=== PATIENT | male | born 1965 | race Hispanic/Latino ===

== ENCOUNTER 2017-04-16 11:31 | Emergency (ER) | payer OTHER ==
[2017-04-16 11:38] VITALS: RESP 20; O2SAT 98; BMI 32.8
--- NOTE | 2017-04-16 13:34 | ED PDOC ---
Lower Extremity Pain/Injury Time Seen by Provider: 04/16/17 12:11 Chief Complaint (Nursing): Lower Extremity Problem/Injury Chief Complaint (Provider): Lower extremity problem History Per: Patient History/Exam Limitations: no limitations Onset/Duration Of Symptoms: Days (x3) Current Symptoms Are (Timing): Still Present Additional Complaint(s): Shane Dailey is a 51 year old male, with a past medical history of asthma, hypertension, and chronic leg swelling, who presents to the emergency department complaining of worsening bilateral leg swelling onset 2 days ago. Patient states he has had chronic leg swelling for years but recently it has worsen. 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 Patient denies any chest pain, fever, chills, cough or shortness of breath No further medical complaints. PMD: Guillaume Reeves - Risk Factors DVT Risk Factors: Pos: History Of DVT Past Medical History Reviewed: Historical Data, Nursing Documentation, Vital Signs Vital Signs: Last Vital Signs Temp 97.7 F 04/16/17 11:37 Pulse 65 04/16/17 11:37 Resp 20 04/16/17 11:37 BP 126/86 04/16/17 11:37 Pulse Ox 98 04/16/17 11:37 - Medical History PMH: Asthma, Deep Vein Thrombosis Denies: HIV - Family History Family History: States: Unknown Family Hx - Social History Current smoker - smoking cessation education provided: Yes (Heavy smoker >10 cigarettes daily) Alcohol: None Drugs: Cocaine (for 30+ years), Opiates (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) - Home Medications Home Medications: Ambulatory Orders Medication Instructions Recorded Clindamycin [Cleocin] 600 mg PO Q8 #30 cap 01/18/16 Lactobacillus Acidophilus [Bacid 1 cap PO BID #0 cap 01/18/16 Acidophilus] Oxycodone HCl/Acetaminophen 1 tab PO Q12 PRN #15 tab 01/18/16 [Percocet 325 mg-5 mg] Sertraline [Zoloft] 100 mg PO DAILY #0 tab 01/18/16 cloNIDine [clonidine HCl] 0.1 mg PO BID #0 tab 01/18/16 traZODone [Desyrel] 100 mg PO HS #0 tab 01/18/16 Cephalexin [Keflex] 500 mg PO BID #14 capsule 04/16/17 - Allergies Allergies/Adverse Reactions: Allergies Allergy/AdvReac Type Severity Reaction Status Date / Time No Known Allergies Allergy Verified 04/16/17 11:55 Review of Systems ROS Statement: Except As Marked, All Systems Reviewed And Found Negative Constitutional: Negative for: Fever, Chills Cardiovascular: Negative for: Chest Pain Respiratory: Negative for: Cough, Shortness of Breath Musculoskeletal: Positive for: Leg Pain (bilateral leg swelling ) Physical Exam - Reviewed Nursing Documentation Reviewed: Yes Vital Signs Reviewed: Yes - Physical Exam Appears: Positive for: Well (comfortable), Non-toxic, No Acute Distress Head Exam: Positive for: ATRAUMATIC, NORMAL INSPECTION, NORMOCEPHALIC Skin: Positive for: Normal Color, Warm, Dry Eye Exam: Positive for: EOMI, Normal appearance, PERRL Neck: Positive for: Normal, Painless ROM, Supple Cardiovascular/Chest: Positive for: Regular Rate, Rhythm. Negative for: Murmur Respiratory: Positive for: Normal Breath Sounds. Negative for: Respiratory Distress Gastrointestinal/Abdominal: Positive for: Normal Exam, Bowel Sounds, Soft. Negative for: Tenderness, Guarding, Rebound Back: Positive for: Normal Inspection (No midline tenderness). Negative for: L CVA Tenderness, R CVA Tenderness Extremity: Positive for: Normal ROM (bilateral legs), Tenderness (bilateral diffused but no redness no wounds.), Swelling (bilateral equal swelling below the knee.) Neurologic/Psych: Positive for: Alert, Oriented. Negative for: Motor/Sensory Deficits - Laboratory Results Result Diagrams: 04/16/17 13:00 04/16/17 13:00 - ECG O2 Sat by Pulse Oximetry: 98 (RA) Pulse Ox Interpretation: Normal Medical Decision Making Medical Decision Making: Initial Impression: leg swelling. Differential includes: lymphedema, dependent edema of the legs. Rule out DVT, CHF Initial Plan: --B-type Natriuretic Peptide --Basic Metabolic Panel --CBC w/ differential --Chest portable [RAD] --Duplex Lower Extrm Vein Bilat [US] --reevaluation 1335 Chest x-ray FINDINGS: LUNGS: No active pulmonary disease. PLEURA: No significant pleural effusion identified, no pneumothorax apparent. CARDIOVASCULAR: No radiographic findings to suggest acute or significant cardiovascular disease. OSSEOUS STRUCTURES: No significant abnormalities. VISUALIZED UPPER ABDOMEN: Normal. OTHER FINDINGS: None. IMPRESSION: No active disease. No significant interval change compared to the prior examination(s). Scribe Attestation: Documented by Jorge Cramer, acting as a scribe for Chuy Hernandez MD Provider Scribe Attestation: All medical record entries made by the Scribe were at my direction and personally dictated by me. I have reviewed the chart and agree that the record accurately reflects my personal performance of the history, physical exam, medical decision making, and the department course for this patient. I have also personally directed, reviewed, and agree with the discharge instructions and disposition. Disposition - Clinical Impression Clinical Impression: Leg swelling - Patient ED Disposition Is Patient to be Admitted: No Doctor Will See Patient In The: Office Counseled Patient/Family Regarding: Studies Performed, Diagnosis, Need For Followup - Disposition Referrals: Guillaume Reeves MD [Family Provider] - Disposition: Routine/Home Disposition Time: 17:33 Condition: GOOD Additional Instructions: Take your medications as instructed. Apply compression stockings. Follow up with your PCP in 3 days. Prescriptions: Cephalexin [Keflex] 500 mg PO BID #14 capsule Instructions: Leg Edema (ED)
[2017-04-16 13:36] LABS: BASO % 0.9 % (0.0-2.0); EOS # 0.1 K/uL (0.0-0.7); EOS % 2.6 % (0.0-4.0); HEMATOCRIT 34.1 % (35.0-51.0); LYMPH # 0.9 K/uL (1.0-4.3); LYMPH % 30.9 % (20.0-40.0); MEAN CELL VOLUME 90.1 fl (80.0-94.0); MEAN CORPUSCULAR HEMOGLOBIN 30.7 pg (27.0-31.0); MEAN CORPUSCULAR HGB CONC 34.1 g/dL (33.0-37.0); MEAN PLATELET VOLUME 9.8 fl (7.2-11.7); MONO # 0.4 K/uL (0.0-0.8); MONO % 12.8 % (0.0-10.0); NEUT # 1.6 K/uL (1.8-7.0); NEUT % 52.8 % (50.0-75.0); NRBC % 0.1 % (0.0-0.0); RED CELL DISTRIBUTION WIDTH 14.9 % (11.5-14.5); WHITE BLOOD COUNT 3.1 K/uL (4.8-10.8)
--- NOTE | 2017-04-16 13:37 | RAD ---
HISTORY: Shortness of breath. Technique: Single view portable erect @ 13:02. COMPARISON: 01/11/2016 FINDINGS: LUNGS: No active pulmonary disease. PLEURA: No significant pleural effusion identified, no pneumothorax apparent. CARDIOVASCULAR: No radiographic findings to suggest acute or significant cardiovascular disease. OSSEOUS STRUCTURES: No significant abnormalities. VISUALIZED UPPER ABDOMEN: Normal. OTHER FINDINGS: None. IMPRESSION: No active disease. No significant interval change compared to the prior examination(s). Please note: No preliminary report/ innterpretation of this examination provided by emergency department personnel.
[2017-04-16 13:59] LABS: BLOOD UREA NITROGEN 14 mg/dl (9-20); CALCIUM 9.4 mg/dL (8.4-10.2); CARBON DIOXIDE 22 mmol/L (22-30); CHLORIDE 104 mmol/L (98-107); GFR AFRICAN-AMERICAN > 60; GLUCOSE,RANDOM 73 mg/dL (75-110); POTASSIUM 4.6 MMOL/L (3.6-5.0); SODIUM 139 mmol/l (132-148)
--- NOTE | 2017-04-16 15:55 | US ---
PROCEDURE: Bilateral lower extremity venous duplex Doppler. HISTORY: joey leg swelling pain COMPARISON: None available. TECHNIQUE: Bilateral common femoral, superficial femoral, popliteal and posterior tibial veins were evaluated. Flow was assessed with color Doppler, compressibility, assessment of phasic flow and augmentation response. FINDINGS: COMMON FEMORAL VEIN: Right CFV: Unremarkable. Left CFV: Unremarkable. SUPERFICIAL FEMORAL VEIN: Right SFV: Unremarkable. Left SFV: Unremarkable. POPLITEAL VEIN: Right Popliteal: Unremarkable. Left Popliteal: Unremarkable. POSTERIOR TIBIAL VEIN: Right PTV: Unremarkable. Left PTV: Unremarkable. OTHER FINDINGS: Right inguinal lymph node 2.9 cm greatest dimension. Left inguinal lymph nodes, 3.5 cm and 3.2 cm in respective greatest dimensions. Extensive bilateral subcutaneous edema. IMPRESSION: No evidence of deep venous thrombosis. Bilateral enlarged inguinal lymph nodes.
[2017-04-16 17:36] VITALS: BP 125/90; PULSE 79; TEMP 98
== END 2017-04-16 17:39 | disposition home or self-care (01) ==
LOC: H.ER 11:31
DX: R60.0 Localized edema (principal)

== ENCOUNTER 2018-09-02 03:18 | Inpatient (IN) | payer OTHER ==
[2018-09-02 03:26] VITALS: BMI 40.7
[2018-09-02] MEDS ORDERED: Sodium Chloride 0.9% 1,000 ML IV STA (04:03)
--- NOTE | 2018-09-02 04:06 | ED PDOC ---
HPI: Abdomen Chief Complaint (Provider): abdominal pain History Per: Patient History/Exam Limitations: no limitations Onset/Duration Of Symptoms: Days (3), Waxing/Waning Current Symptoms Are (Timing): Still Present Location Of Pain/Discomfort: Epigastric Associated Symptoms: Nausea, Vomiting Additional Complaint(s): 53 y/o male brought in by EMS for evaluation of intermittent epigastric abdominal pain x 3 days. Associated vomiting since last night. Denies fever, chest pain, shortness of breath, palpitations, changes in bowel movements, urinary symptoms, recent travel, sick contacts. PMD: Dr. Emerson Robbins <Candace Queen - Last Filed: 09/02/18 06:06> <Bismark Osuna - Last Filed: 09/02/18 06:37> Time Seen by Provider: 09/02/18 03:54 Chief Complaint (Nursing): Abdominal Pain Past Medical History Reviewed: Historical Data, Nursing Documentation, Vital Signs Vital Signs: Last Vital Signs Temp 98.6 F 09/02/18 03:26 Pulse 68 09/02/18 03:26 Resp 18 09/02/18 03:26 BP 136/97 H 09/02/18 03:26 Pulse Ox 99 09/02/18 03:26 - Medical History PMH: Asthma, Deep Vein Thrombosis Denies: HIV - Family History Family History: States: Unknown Family Hx <Candace Queen - Last Filed: 09/02/18 06:06> Vital Signs: Last Vital Signs Temp 98.6 F 09/02/18 03:26 Pulse 68 09/02/18 03:26 Resp 18 09/02/18 03:26 BP 136/97 H 09/02/18 03:26 Pulse Ox 99 09/02/18 06:06 <Bismark Osuna - Last Filed: 09/02/18 06:37> - Home Medications Home Medications: Ambulatory Orders Medication Instructions Recorded Clindamycin [Cleocin] 600 mg PO Q8 #30 cap 01/18/16 Lactobacillus Acidophilus [Bacid 1 cap PO BID #0 cap 01/18/16 Acidophilus] Oxycodone HCl/Acetaminophen 1 tab PO Q12 PRN #15 tab 01/18/16 [Percocet 325 mg-5 mg] Sertraline [Zoloft] 100 mg PO DAILY #0 tab 01/18/16 cloNIDine [clonidine HCl] 0.1 mg PO BID #0 tab 01/18/16 traZODone [Desyrel] 100 mg PO HS #0 tab 01/18/16 Cephalexin [Keflex] 500 mg PO BID #14 capsule 04/16/17 - Allergies Allergies/Adverse Reactions: Allergies Allergy/AdvReac Type Severity Reaction Status Date / Time No Known Allergies Allergy Verified 09/02/18 03:44 Review of Systems ROS Statement: Except As Marked, All Systems Reviewed And Found Negative Gastrointestinal: Positive for: Nausea, Vomiting, Abdominal Pain <Candace Queen C - Last Filed: 09/02/18 06:06> Physical Exam - Reviewed Nursing Documentation Reviewed: Yes Vital Signs Reviewed: Yes - Physical Exam Appears: Positive for: Well, Non-toxic, Uncomfortable Head Exam: Positive for: ATRAUMATIC, NORMAL INSPECTION, NORMOCEPHALIC Skin: Positive for: Normal Color Eye Exam: Positive for: Normal appearance ENT: Positive for: Normal ENT Inspection Cardiovascular/Chest: Positive for: Regular Rate, Rhythm Respiratory: Positive for: Normal Breath Sounds Gastrointestinal/Abdominal: Positive for: Bowel Sounds, Soft, Tenderness (epigastric) Back: Positive for: Normal Inspection Extremity: Positive for: Normal ROM Neurologic/Psych: Positive for: Alert, Oriented (x3) <Candace Queen C - Last Filed: 09/02/18 06:06> - ECG ECG: Positive for: Viewed By Me (reviewed by ED attending) ECG Rhythm: Positive for: Sinus Rhythm O2 Sat by Pulse Oximetry: 99 - Progress ED Course And Treament: -cbc -cmp -lipase -urinalysis -IV NS bolus -IV zofran -IV pepcid -IV toradol <Candace Queen C - Last Filed: 09/02/18 06:06> Medical Decision Making Medical Decision Makin Patient presenting with epigastric pain, vomiting --DDx: biliary disease, gastritis, pancreatitis --IV established, labs drawn --Will get U/S, possibly CT if necessary --Will endorse case to Dr. James at 700 <Bismark Osuna - Last Filed: 09/02/18 06:37> Disposition - Patient ED Disposition Is Patient to be Admitted: No - Disposition Disposition Time: 06:00 Patient Signed Over To: Bismark Osuna Handoff Comments: pending labs, imaging, re-eval <Candace Queen - Last Filed: 09/02/18 06:06> - Patient ED Disposition Is Patient to be Admitted: Transfer of Care - Disposition Disposition: Transfer of Care Disposition Time: 07:00 Patient Signed Over To: Chuy Dixon <Bismark Osuna - Last Filed: 09/02/18 06:37> - Clinical Impression Clinical Impression: Abdominal pain - Disposition Condition: STABLE Forms: [employer] (Thai)
[2018-09-02 06:38] LABS: BASO % 0.1 % (0.0-2.0); EOS % 0.1 % (0.0-4.0); HEMOGLOBIN 15.2 g/dL (12.0-18.0); LYMPH # 0.3 K/uL (1.0-4.3); LYMPH % 3.7 % (20.0-40.0); MEAN CELL VOLUME 90.4 fl (80.0-94.0); MEAN CORPUSCULAR HEMOGLOBIN 30.2 pg (27.0-31.0); MEAN CORPUSCULAR HGB CONC 33.4 g/dL (33.0-37.0); MEAN PLATELET VOLUME 7.9 fl (7.2-11.7); MONO # 0.3 K/uL (0.0-0.8); NEUT # 6.2 K/uL (1.8-7.0); NEUT % 91.1 % (50.0-75.0); PLATELET COUNT 119 K/uL (130-400); RBC 5.04 Mil/uL (4.40-5.90); RED CELL DISTRIBUTION WIDTH 13.3 % (11.5-14.5); WHITE BLOOD COUNT 6.8 K/uL (4.8-10.8)
[2018-09-02 06:43] LABS: INR 1.1; PROTHROMBIN TIME 12.1 Seconds (9.8-13.1)
[2018-09-02 06:57] LABS: ALB/GLOB RATIO 0.8 (1.0-2.1); ALBUMIN 4.2 g/dL (3.5-5.0); BLOOD UREA NITROGEN 17 mg/dl (9-20); CALCIUM 9.3 mg/dL (8.4-10.2); GFR NON-AFRICAN AMERICAN > 60; LIPASE 76 U/L (23-300)
[2018-09-02 07:03] LABS: ALT/SGPT 188 U/L (21-72); AST/SGOT 280 U/L (17-59)
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
[2018-09-02 07:53] LABS: SQUAMOUS EPITHIAL < 1 /hpf (0-5); URINE BACTERIA RARE (<OCC); URINE BILIRUBIN NEGATIVE (NEGATIVE); URINE BLOOD NEGATIVE (NEGATIVE); URINE CLARITY SLIGHTY-CLOUDY (Clear); URINE COLOR AMBER (YELLOW); URINE GLUCOSE (UA) NEG (NEGATIVE); URINE LEUKOCYTE ESTERASE NEG Leu/uL (Negative); URINE PROTEIN NEGATIVE (NEGATIVE)
[2018-09-02 08:57] LABS: BANDS 7 % (0-2); LYMPHOCYTE 4 % (20-50); MONOCYTE 6 % (0-10); NEUTROPHIL 83 % (42-75); PLATELET ESTIMATE DECREASED (NORMAL); TOTAL CELLS COUNTED 100
[2018-09-02 08:58] LABS: PLATELET CLUMPS PRESENT
[2018-09-02 09:49] LABS: BARBITURATES, UR NEGATIVE (NEGATIVE); BENZODIAZEPINES, UR NEGATIVE (NEGATIVE); OPIATES, UR POSITIVE (NEGATIVE); PHENCYCLIDINE, UR NEGATIVE (NEGATIVE)
--- NOTE | 2018-09-02 09:54 | US ---
Date of service: 09/02/2018 HISTORY: abd pain, vomiting COMPARISON: None. TECHNIQUE: Sonographic evaluation of the right upper quadrant of the abdomen. FINDINGS: This examination is markedly limited due to body habitus related imaging constraints. LIVER: Measures 18.9 cm in length. Normal echogenicity of the liver parenchyma. No mass. No intrahepatic bile duct dilatation. GALLBLADDER: Gallbladder is partially collapsed and ectatic at the gallbladder fossa with potential marked mural thickening and pericholecystic fluid. No definitive cholelithiasis is identified. COMMON BILE DUCT: Measures 17.8 mm. No definitive choledocholithiasis is seen in the proximal visualized CBD with mid and distal segment obscured by overlying bowel gas. The common hepatic duct is dilated to 15 mm at least. PANCREAS: Pancreas is poorly evaluated due to overlying bowel gas and body habitus related image degradation. RIGHT KIDNEY: Measures 9.9 cm in length. Normal echogenicity. No calculus, mass, or hydronephrosis. AORTA: No aneurysmal dilatation. IVC: Unremarkable. OTHER FINDINGS: None . IMPRESSION: Marked interval dilatation of the common bile duct and common hepatic duct up to 15-17.8 mm as discussed above without definitive choledocholithiasis. Pancreas poorly evaluated and therefore the pancreatic duct is not identified. The gallbladder is contracted but possibly inflammatory given mural thickening and pericholecystic fluid question above. Follow-up MRCP exam is advised and also consider CT of the abdomen pelvis with oral and intravenous contrast for better definition of the pancreas and remaining biliary tree.
[2018-09-02] MEDS ORDERED: Iohexol 240 (50 ml) PO ONE (10:07)
[2018-09-02] MEDS ORDERED: Iohexol 240 (50 ml) ONE ×2 (10:32→10:34)
[2018-09-02] MEDS ORDERED: Piperacillin/Tazobact 3.375 GM in Sodium Chloride 0.9% 100 ML IVPB STA (10:42)
[2018-09-02 11:24] LABS: VENOUS BLOOD GAS BASE EXCESS 0.3 mmol/L (0.0-2.0); VENOUS BLOOD GAS PCO2 38 mmHg (40-60); VENOUS BLOOD GAS PO2 81 mm/Hg (30-55); VENOUS BLOOD PH 7.42 (7.32-7.43)
[2018-09-02] MEDS ORDERED: Piperacillin/Tazobact 3.375 gm Inj IVPB ONE (11:58)
--- NOTE | 2018-09-02 12:43 | CARD ---
APPROVED REPORT Date of service: 09/02/2018 EKG Measurement Heart [id number] <Conclusion> Normal sinus rhythm Normal ECG
[2018-09-02] MEDS: Lactated Ringer's 1,000 ML IV SCH ×3 (12:51→21:36)
[2018-09-02] MEDS ORDERED: Iohexol 300 50 ML ONE (12:54)
[2018-09-02] MEDS ORDERED: Iohexol 300 100 ML IJ ONE (12:54)
[2018-09-02] MEDS ORDERED: Sodium Chloride 0.9% 50 ML IV ONE (12:55)
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
--- NOTE | 2018-09-02 14:51 | CT ---
Date of service: 09/02/2018 PROCEDURE: CT Abdomen and Pelvis with contrast HISTORY: abdominal pain COMPARISON: Limited abdomen ultrasound 09/02/2018 and 01/15/2016. TECHNIQUE: Following oral and intravenous contrast administration, a CT examination of the abdomen and pelvis was performed from the domes of the diaphragms to the symphysis pubis with reformatted datasets provided not only axial but also sagittal and coronal series. Contrast dose: Omnipaque 300, 95 cc Radiation dose: Total exam DLP = 886.97 mGy-cm. This CT exam was performed using one or more of the following dose reduction techniques: Automated exposure control, adjustment of the mA and/or kV according to patient size, and/or use of iterative reconstruction technique. FINDINGS: LOWER THORAX: Unremarkable. LIVER: Hepatic steatosis appreciate without focal mass identified. Intrahepatic biliary dilatation appears mild to moderate severity. GALLBLADDER AND BILE DUCTS: The gallbladder appears irregular and is partially collapsed. Mural thickening and pericholecystic reaction is present with trace fluid associated and prominent dilatation of the common hepatic duct is identified up to 14 mm with the proximal common bile duct measuring 20.5 mm. The mid common bile duct measures 12 mm with the distal common bile duct measuring 11.8 mm. No radiodense choledocholithiasis is appreciated. Consider possible radiolucent choledocholithiasis, distal most CBD stricture or potential ampullary mass. A large ampullary lesion is not identified nor is a prominent pancreas mass evident. Instead, the pancreas appears rather atrophic diffusely. Pancreatic duct is not identified adequately. PANCREAS: See gallbladder section above. SPLEEN: Splenomegaly, nonfocal, to 14.1 cm. ADRENALS: Unremarkable. No mass. KIDNEYS AND URETERS: Unremarkable. No hydronephrosis. No solid mass. VASCULATURE: Unremarkable. No aortic aneurysm. No aortic atherosclerotic calcification or mural plaque present. BOWEL: Unremarkable. No obstruction. No gross mural thickening. APPENDIX: Normal appendix. PERITONEUM: Tiny umbilical hernia identified containing only mesenteric fat and no bowel. LYMPH NODES: Unremarkable. No enlarged lymph nodes. BLADDER: Unremarkable. REPRODUCTIVE: Unremarkable. BONES: No acute fracture. OTHER FINDINGS: None. IMPRESSION: 1. Abnormal hepatic biliary findings are identified including hepatic steatosis and diffuse biliary tree dilatation predominantly extrahepatic but with [id number] intrahepatic biliary dilatation. No radiodense choledocholithiasis identified or obvious pancreas mass or gross ampullary mass. Nevertheless, consider possible lucent choledocholithiasis or ampullary mass. Pancreatic mass not completely excluded near the head. Follow-up MRCP is advised with abdomen MRI with without contrast. Endoscopic ultrasonography of the pancreas head and CBD may be helpful as well. 2. A tiny umbilical hernia is identified containing only mesenteric fat and no bowel.
[2018-09-02] MEDS: Morphine 5 MG/ML SYRINGE IVP PRN ×2 (16:23→20:13)
[2018-09-02] MEDS ORDERED: Pneumococcal 23-Valent Vaccine IM ONE (19:37)
[2018-09-02] MEDS ORDERED: Influenza Vaccine 60 mcg/0.5 mL SYR (4YR UP) IM ONE (20:00)
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
[2018-09-02] MEDS: Piperacillin/Tazobact 3.375 GM in Sodium Chloride 0.9% 100 ML IVPB SCH (21:57)
[2018-09-03] MEDS: Gentamicin 80mg/50ml NS 80 MG/50 ML BAG IVPB SCH ×3 (00:52→17:53)
[2018-09-03] MEDS: Piperacillin/Tazobact 3.375 GM in Sodium Chloride 0.9% 100 ML IVPB SCH ×4 (03:58→21:54)
[2018-09-03] MEDS: Lactated Ringer's 1,000 ML IV SCH ×3 (03:59→21:52)
[2018-09-03 07:25] LABS: ALB/GLOB RATIO 0.8 (1.0-2.1); ALBUMIN 3.7 g/dL (3.5-5.0); ALT/SGPT 124 U/L (21-72); AST/SGOT 104 U/L (17-59); BLOOD UREA NITROGEN 16 mg/dl (9-20); CALCIUM 9.2 mg/dL (8.4-10.2); GFR NON-AFRICAN AMERICAN > 60
[2018-09-03 07:55] LABS: HEMOGLOBIN 13.2 g/dL (12.0-18.0); MEAN CELL VOLUME 88.7 fl (80.0-94.0); MEAN CORPUSCULAR HEMOGLOBIN 30.5 pg (27.0-31.0); MEAN CORPUSCULAR HGB CONC 34.5 g/dL (33.0-37.0); RBC 4.34 Mil/uL (4.40-5.90); RED CELL DISTRIBUTION WIDTH 13.6 % (11.5-14.5); WHITE BLOOD COUNT 8.3 K/uL (4.8-10.8)
[2018-09-03] MEDS: Morphine 5 MG/ML SYRINGE IVP PRN ×3 (09:09→18:10)
--- NOTE | 2018-09-03 09:23 | CP.PCM.PN ---
Subjective - Date & Time of Evaluation Date of Evaluation: 09/03/18 Time of Evaluation: 09:20 - Subjective Subjective: seen at bedside, no overnight events. Pt continues to report epigastric pain similar to admission, intermittent in nature. Pt npo, reports no nausea or vomiting. Pt reports urine dark yellow. Objective - Vital Signs/Intake and Output Vital Signs (last 24 hours): Temp Pulse Resp BP Pulse Ox 98.3 F 60 20 123/77 97 09/03/18 08:04 09/03/18 08:04 09/03/18 08:04 09/03/18 08:04 09/03/18 08:04 - Medications Medications: Current Medications Lactated Ringer's (Lactated Ringer's) 1,000 mls @ 125 mls/hr IV .Q8H NANCY Last Admin: 09/03/18 03:59 Dose: 125 mls/hr Gentamicin Sulfate/Sodium Chloride (Gentamicin 80mg/50ml Ns) 80 mg in 50 mls @ 50 mls/hr IVPB Q8 NANCY; Protocol Last Admin: 09/03/18 00:52 Dose: 50 mls/hr Piperacillin Sod/Tazobactam (Sod 3.375 gm/ Sodium Chloride) 100 mls @ 100 mls/hr IVPB Q6 NANCY; Protocol Last Admin: 09/03/18 03:58 Dose: 100 mls/hr Methadone HCl (Methadone) 80 mg PO DAILY [facility] Morphine Sulfate (Morphine) 4 mg IVP Q4 PRN PRN Reason: Pain, severe (8-10) Last Admin: 09/03/18 09:09 Dose: 4 mg Ondansetron HCl (Zofran Inj) 4 mg IVP Q4 PRN PRN Reason: Nausea/Vomiting - Labs Labs: 09/03/18 07:47 09/03/18 05:45 PT 12.1 Seconds (9.8-13.1) 09/02/18 05:50 INR 1.1 09/02/18 05:50 APTT 29.0 Seconds (25.6-37.1) 09/02/18 05:50 - Constitutional Appears: Non-toxic, No Acute Distress - Head Exam Head Exam: ATRAUMATIC, NORMAL INSPECTION - Eye Exam Eye Exam: EOMI - ENT Exam ENT Exam: Mucous Membranes Dry - Cardiovascular Exam Cardiovascular Exam: REGULAR RHYTHM - GI/Abdominal Exam GI & Abdominal Exam: Distended, Soft, Tenderness (tenderness to epigastric/RUQ area , no peritoneal signs) - Extremities Exam Extremities Exam: absent: Calf Tenderness Assessment and Plan - Assessment and Plan (Free Text) Plan: 53yo M with epigastric pain, elevated liver enzymes, hyperbilirubinemia -pain control -NPO -IV -cont Abx -f/u Hep panel -f/u GI -ERCP? repeat labs in am
[2018-09-03 12:36] LABS: HEPATITIS B SURFACE AG Negative (NEGATIVE)
[2018-09-03 12:43] LABS: HEPATITIS A IGM NEGATIVE (NEGATIVE); HEPATITIS B CORE AB NEGATIVE (NEGATIVE)
[2018-09-03 14:18] LABS: HEPATITIS C ANTIBODY REACTIVE (NEGATIVE)
--- NOTE | 2018-09-03 14:24 | CP.PCM.PN ---
Subjective - Date & Time of Evaluation Date of Evaluation: 09/03/18 Time of Evaluation: 10:10 - Subjective Subjective: F/U Abdominal pain. C/O of epigastric pain, requesting Morphine. Objective - Vital Signs/Intake and Output Vital Signs (last 24 hours): Temp Pulse Resp BP Pulse Ox 98.3 F 60 20 123/77 97 09/03/18 08:04 09/03/18 08:04 09/03/18 08:04 09/03/18 08:04 09/03/18 08:04 - Medications Medications: Current Medications Lactated Ringer's (Lactated Ringer's) 1,000 mls @ 125 mls/hr IV .Q8H NANCY Last Admin: 09/03/18 13:07 Dose: Not Given Gentamicin Sulfate/Sodium Chloride (Gentamicin 80mg/50ml Ns) 80 mg in 50 mls @ 50 mls/hr IVPB Q8 NANCY; Protocol Last Admin: 09/03/18 09:31 Dose: 50 mls/hr Piperacillin Sod/Tazobactam (Sod 3.375 gm/ Sodium Chloride) 100 mls @ 100 mls/hr IVPB Q6 NANCY; Protocol Last Admin: 09/03/18 09:41 Dose: 100 mls/hr Methadone HCl (Methadone) 80 mg PO DAILY NANCY Last Admin: 09/03/18 11:19 Dose: 80 mg Morphine Sulfate (Morphine) 4 mg IVP Q4 PRN PRN Reason: Pain, severe (8-10) Last Admin: 09/03/18 12:34 Dose: 4 mg Ondansetron HCl (Zofran Inj) 4 mg IVP Q4 PRN PRN Reason: Nausea/Vomiting Last Admin: 09/03/18 12:35 Dose: 4 mg - Labs Labs: 09/03/18 07:47 09/03/18 05:45 PT 12.1 Seconds (9.8-13.1) 09/02/18 05:50 INR 1.1 09/02/18 05:50 APTT 29.0 Seconds (25.6-37.1) 09/02/18 05:50 - Constitutional Appears: No Acute Distress - Head Exam Head Exam: NORMAL INSPECTION - Eye Exam Eye Exam: PERRL - ENT Exam ENT Exam: Normal Exam - Neck Exam Neck Exam: Normal Inspection - Respiratory Exam Respiratory Exam: NORMAL BREATHING PATTERN - Cardiovascular Exam Cardiovascular Exam: REGULAR RHYTHM - GI/Abdominal Exam GI & Abdominal Exam: Soft, Tenderness (epigastric area), Normal Bowel Sounds. absent: Guarding, Rebound - Extremities Exam Extremities Exam: Normal Inspection - Back Exam Back Exam: NORMAL INSPECTION - Neurological Exam Neurological Exam: Alert, Oriented x3. absent: Motor Sensory Deficit - Psychiatric Exam Psychiatric exam: Anxious - Skin Skin Exam: Warm Assessment and Plan (1) Abdominal pain Status: Acute (2) Elevated liver enzymes Status: Acute (3) Common bile duct dilatation Status: Acute (4) Bacteremia due to Gram-negative bacteria Status: Acute (5) Hepatic steatosis Status: Acute (6) Hepatitis C Status: Chronic (7) Alcohol abuse Status: Chronic (8) Opiate abuse, continuous Status: Chronic - Assessment and Plan (Free Text) Plan: Continue Genta, Zosyn and rest of Tx. GI consult, ERCP. ID consult
[2018-09-04] MEDS: Gentamicin 80mg/50ml NS 80 MG/50 ML BAG IVPB SCH ×3 (00:23→18:35)
[2018-09-04] MEDS: Piperacillin/Tazobact 3.375 GM in Sodium Chloride 0.9% 100 ML IVPB SCH ×4 (03:42→21:33)
[2018-09-04] MEDS: Lactated Ringer's 1,000 ML IV SCH ×4 (03:48→21:32)
[2018-09-04] MEDS: Morphine 5 MG/ML SYRINGE IVP PRN (07:06)
--- NOTE | 2018-09-04 08:45 | CON ---
DATE: 09/03/2018 REFERRING PHYSICIAN: Emerson Robbins MD REASON FOR CONSULTATION: Dilated CBD, elevated LFTs. HISTORY OF PRESENT ILLNESS: This is a 53-year-old male with history of hep C which was treated and ex-IVDA, methadone; DVT, hypercoagulable state; reflux, heartburn, has abdominal pain and discomfort over the past three weeks, subjective fevers as well, active drinking, no other GI complaints. No weight loss. Currently lying in bed comfortable. No apparent distress. Last IV drug use was only few days ago. PAST MEDICAL HISTORY: As above. PAST SURGICAL HISTORY: As above. MEDICATIONS: Reviewed. REVIEW OF SYSTEMS: All other systems have been reviewed and negative apart from the HPI. PHYSICAL EXAMINATION: VITAL SIGNS: Here in the hospital, grossly unremarkable. GENERAL: This is a pleasant middle-aged male, lying in bed, comfortable, in no apparent distress. HEENT: Head: Normocephalic and atraumatic. Eyes: Pupils are equally reactive to light bilaterally. There is conjunctival icterus. No pallor. NECK: Supple. Normal range of motion. No lymphadenopathy appreciated. LUNGS: Coarse breath sounds bilaterally. HEART: S1 and S2. Regular rate and rhythm. ABDOMEN: Soft. Nontender. Bowel sounds present. No rebound. No guarding. RECTAL: Deferred. EXTREMITIES: Pulses felt bilaterally. SKIN: Warm, dry, and intact. NEUROLOGIC: A and O x3. LABORATORY DATA: All labs and radiology have been reviewed. WBC is 8.3 and stable, hemoglobin stable. Total bilirubin from 7 to 5; AST and ALT are dropping, peaked 280 and 188, now 141 and 84; alkaline phosphatase as well has decreased to 384. U-tox is positive for opiates, methadone, cocaine and alcohol is positive as well. Ultrasound shows dilated CBD as well as CAT scan shows a proximal dilation of 2 mm and distally about 11 mm. No evidence of stone as well, contracted gallbladder and some thickening as well. ASSESSMENT AND PLAN: This is a 53-year-old male with dilated common bile duct and elevated liver function tests. The patient's clinical picture is a little bit murky. The etiologies for all these things to be explained, cannot rule out ampullary mass or stone at this point. Cannot get MRI because of fragments. The sensitivity is more likely secondary to methadone and the elevation in liver function tests could be combination of alcohol, cocaine, possibly other etiology including hepatitis C. For right now, we will advance to clears and this is improving clinically and medically, can defer to operation setting for possible EUS, otherwise may be going to stay for ERCP inpatient. We will follow the patient with you. Surgical consult appreciated. Thank you for the consult. Vince Quintero MD/ PhD
--- NOTE | 2018-09-04 09:08 | CP.PCM.PN ---
<Rosa Maria Segura - Last Filed: 09/04/18 09:46> Subjective - Date & Time of Evaluation Date of Evaluation: 09/04/18 Time of Evaluation: 06:50 - Subjective Subjective: Progress note for Dr. Graham Pt seen and examined this AM. No adverse events overnight. Patient reports epigastric pain, but greatly improved since admit. Patient denies nausea, vomiting, diarrhea, but hasn't had a BM since prior to admit. Passing flatus. admits to dark urine Objective - Vital Signs/Intake and Output Vital Signs (last 24 hours): Temp Pulse Resp BP Pulse Ox 97.8 F 88 20 125/85 97 09/04/18 08:15 09/04/18 08:15 09/04/18 08:15 09/04/18 08:15 09/04/18 08:15 - Medications Medications: Current Medications Bupropion HCl (Wellbutrin Sr 150 Mg) 150 mg PO DAILY NANCY Enoxaparin Sodium (Lovenox) 40 mg SC DAILY [facility]; Protocol Gabapentin (Neurontin) 200 mg PO Q8 NANCY Home Med (Mirtazapine [Mirtazapine]) 45 mg PO HS NANCY Lactated Ringer's (Lactated Ringer's) 1,000 mls @ 125 mls/hr IV .Q8H NANCY Last Admin: 09/04/18 06:12 Dose: 125 mls/hr Gentamicin Sulfate/Sodium Chloride (Gentamicin 80mg/50ml Ns) 80 mg in 50 mls @ 50 mls/hr IVPB Q8 NANCY; Protocol Last Admin: 09/04/18 00:23 Dose: 50 mls/hr Piperacillin Sod/Tazobactam (Sod 3.375 gm/ Sodium Chloride) 100 mls @ 100 mls/hr IVPB Q6 NANCY; Protocol Last Admin: 09/04/18 03:42 Dose: 100 mls/hr Methadone HCl (Methadone) 80 mg PO DAILY [facility] Last Admin: 09/03/18 11:19 Dose: 80 mg Morphine Sulfate (Morphine) 4 mg IVP Q4 PRN PRN Reason: Pain, severe (8-10) Last Admin: 09/04/18 07:06 Dose: 4 mg Ondansetron HCl (Zofran Inj) 4 mg IVP Q4 PRN PRN Reason: Nausea/Vomiting Last Admin: 09/03/18 12:35 Dose: 4 mg - Labs Labs: 09/03/18 07:47 09/03/18 05:45 PT 12.1 Seconds (9.8-13.1) 09/02/18 05:50 INR 1.1 09/02/18 05:50 APTT 29.0 Seconds (25.6-37.1) 09/02/18 05:50 - Constitutional Appears: Well, Non-toxic, No Acute Distress - Head Exam Head Exam: ATRAUMATIC, NORMOCEPHALIC - Eye Exam Eye Exam: Scleral icterus. absent: Conjunctival injection, Normal appearance - ENT Exam ENT Exam: Mucous Membranes Moist, Normal Oropharynx - Respiratory Exam Respiratory Exam: NORMAL BREATHING PATTERN. absent: Accessory Muscle Use, Respiratory Distress - Cardiovascular Exam Cardiovascular Exam: RRR - GI/Abdominal Exam GI & Abdominal Exam: Soft, Tenderness (epigastric mild tenderness to palpation). absent: Distended, Rebound Additional comments: negative arana's sign - Extremities Exam Extremities Exam: absent: Calf Tenderness, Pedal Edema, Tenderness - Neurological Exam Neurological Exam: Alert, Awake, Oriented x3 - Psychiatric Exam Psychiatric exam: Normal Affect, Normal Mood - Skin Skin Exam: Dry, Warm. absent: Normal Color (jaundiced) Assessment and Plan - Assessment and Plan (Free Text) Assessment: 53M with epigastric abdominal pain, hyperbilirubinemia and dilated CBD, possible choledocholithiasis Plan: F/U ERCP with GI Continue to trend CBC and CMP DVT ppx if ok with GI after ERCP PRN pain and nausea medications medical management per primary Further surgical recommendations pending results of ERCP Patient encouraged to ambulate Discussed with Dr. Santos Segura, PGY2 <Channing Graham - Last Filed: 09/04/18 10:03> Objective - Vital Signs/Intake and Output Vital Signs (last 24 hours): Temp Pulse Resp BP Pulse Ox 97.8 F 88 20 125/85 97 09/04/18 08:15 09/04/18 08:15 09/04/18 08:15 09/04/18 08:15 09/04/18 08:15 - Medications Medications: Current Medications Bupropion HCl (Wellbutrin Sr 150 Mg) 150 mg PO DAILY [facility] Enoxaparin Sodium (Lovenox) 40 mg SC DAILY [facility]; Protocol Gabapentin (Neurontin) 200 mg PO Q8 NANCY Lactated Ringer's (Lactated Ringer's) 1,000 mls @ 125 mls/hr IV .Q8H NANCY Last Admin: 09/04/18 06:12 Dose: 125 mls/hr Gentamicin Sulfate/Sodium Chloride (Gentamicin 80mg/50ml Ns) 80 mg in 50 mls @ 50 mls/hr IVPB Q8 NANCY; Protocol Last Admin: 09/04/18 00:23 Dose: 50 mls/hr Piperacillin Sod/Tazobactam (Sod 3.375 gm/ Sodium Chloride) 100 mls @ 100 mls/hr IVPB Q6 NANCY; Protocol Last Admin: 09/04/18 03:42 Dose: 100 mls/hr Methadone HCl (Methadone) 80 mg PO DAILY NANCY Last Admin: 09/03/18 11:19 Dose: 80 mg Mirtazapine (Remeron) 45 mg PO HS NANCY Morphine Sulfate (Morphine) 4 mg IVP Q4 PRN PRN Reason: Pain, severe (8-10) Last Admin: 09/04/18 07:06 Dose: 4 mg Ondansetron HCl (Zofran Inj) 4 mg IVP Q4 PRN PRN Reason: Nausea/Vomiting Last Admin: 09/03/18 12:35 Dose: 4 mg - Labs Labs: 09/03/18 07:47 09/03/18 05:45 PT 12.1 Seconds (9.8-13.1) 09/02/18 05:50 INR 1.1 09/02/18 05:50 APTT 29.0 Seconds (25.6-37.1) 09/02/18 05:50 Assessment and Plan - Assessment and Plan (Free Text) Plan: seen at bedside, no overnight events. Pt continues to report epigastric pain slightly improved since admission. Continues to report dark yellow urine. Pt NPO scheduled for ERCP today. gen: awake, alert, NAD HEENT: NC/AT, EOMI, +scleral icterus abd: soft, distended, +epigastric/RUQ discomfort, no peritoneal signs 53yo M with epigastric pain hyperbilirubinemia, elevated liver enzymes -f/u GI - ERCP - r/o mass vs possible stone -further management pending ERCP findings
[2018-09-04] MEDS: buPROPion SR 150 MG TABLET PO SCH (10:26)
[2018-09-04 11:15] LABS: ALB/GLOB RATIO 0.8 (1.0-2.1); ALBUMIN 3.4 g/dL (3.5-5.0); ALT/SGPT 74 U/L (21-72); AST/SGOT 55 U/L (17-59); BLOOD UREA NITROGEN 17 mg/dl (9-20); CALCIUM 9.1 mg/dL (8.4-10.2); GFR NON-AFRICAN AMERICAN > 60
[2018-09-04] MEDS ORDERED: Enoxaparin 40 mg Syringe SC SCH (12:00)
[2018-09-04] MEDS: Morphine 4 MG/ML VIAL IVP PRN (12:50)
--- NOTE | 2018-09-04 16:52 | CARD ---
APPROVED REPORT Date of service: 09/04/2018 EXAM: Two-dimensional and M-mode echocardiogram with Doppler and color Doppler. Other Information Quality : GoodRhythm : NSR INDICATION Infection: Bacteremia 2D DIMENSIONS IVSd0.90 (0.7-1.1cm)LVDd5.38 (3.9-5.9cm) LVOT Diameter2.09 (1.8-2.4cm)PWd0.84 (0.7-1.1cm) IVSs1.44 (0.8-1.2cm)LVDs3.23 (2.5-4.0cm) FS (%) 40.1 %PWs1.46 (0.8-1.2cm) M-Mode DIMENSIONS Left Atrium (MM)3.81 (2.5-4.0cm)IVSd0.89 (0.7-1.1cm) Aortic Root3.44 (2.2-3.7cm)LVDd5.36 (4.0-5.6cm) Aortic Cusp Exc.1.99 (1.5-2.0cm)PWd1.03 (0.7-1.1cm) IVSs1.29 cmFS (%) 38 % LVDs3.31 (2.0-3.8cm)PWs1.65 cm Aortic Valve AoV Peak Nizxxjgd759.0cm/sAoV VTI29.2cmAO Peak GR.9mmHg LVOT Peak Xsyiunii253.2cm/sLVOT VTI22.37cmAO Mean GR.5mmHg JOHN (VMAX)1.60gc8PLA (VTI)1.16cm2 Mitral Valve MV E Rydqdguj594.8cm/sMV DECEL SNKD049psMR A Rwqirhta75.7cm/s MV XLL93doK/A ratio2.3MVA (PHT)3.70cm2 TDI Lateral E' Peak V15.97cm/sMedial E' Peak V10.84cm/sE/Lateral E'6.8 E/Medial E'9.9 LEFT VENTRICLE The left ventricle is normal size. There is normal left ventricular wall thickness. The left ventricular systolic function is normal. The estimated ejection fraction is 60-65% No regional wall motion abnormalities noted.. The left ventricular diastolic function is normal. No left ventricle thrombus noted on this study. There is no ventricular septal defect visualized. There is no left ventricular aneurysm. There is no mass noted in the left ventricle. RIGHT VENTRICLE The right ventricle is normal size. There is normal right ventricular wall thickness. The right ventricular systolic function is normal. ATRIA The left atrium is borderline dilated. The right atrium size is normal. The interatrial septum is intact with no evidence for an atrial septal defect. AORTIC VALVE The aortic valve is normal in structure. No aortic regurgitation is present. There is no aortic valvular stenosis. There is no aortic valvular vegetation. MITRAL VALVE The mitral valve is normal in structure. There is no evidence of mitral valve prolapse. There is no mitral valve stenosis. There is trace mitral valve regurgitation noted. TRICUSPID VALVE The tricuspid valve is normal in structure. There is mild tricuspid valve regurgitation noted. RVSP is calculated at 20 mm Hg. There is no tricuspid valve prolapse or vegetation. There is no tricuspid valve stenosis. PULMONIC VALVE The pulmonary valve is normal in structure. There is no pulmonic valvular regurgitation. There is no pulmonic valvular stenosis. GREAT VESSELS The aortic root is normal in size. The ascending aorta is normal in size. The pulmonary artery is normal. The IVC is normal in size and collapses >50% with inspiration. PERICARDIAL EFFUSION There is no pericardial effusion. There is no pleural effusion. <Conclusion> The estimated ejection fraction is 60-65% The left ventricular diastolic function is normal. The left atrium is borderline dilated. There is trace mitral valve regurgitation noted. There is mild tricuspid valve regurgitation noted. RVSP is calculated at 20 mm Hg. No evidence of vegetations on this study. Correlate clinically.
--- NOTE | 2018-09-04 17:14 | CP.PCM.PN ---
Subjective - Date & Time of Evaluation Date of Evaluation: 09/04/18 Time of Evaluation: 12:20 - Subjective Subjective: F/U Abdominal pain. Epigastric pain, relief with Morphine Objective - Vital Signs/Intake and Output Vital Signs (last 24 hours): Temp Pulse Resp BP Pulse Ox 98.8 F 70 18 116/40 L 98 09/04/18 16:43 09/04/18 16:43 09/04/18 16:43 09/04/18 16:43 09/04/18 16:43 - Medications Medications: Current Medications Bupropion HCl (Wellbutrin Sr 150 Mg) 150 mg PO DAILY [facility] Last Admin: 09/04/18 10:26 Dose: 150 mg Docusate Sodium (Colace) 100 mg PO BID [facility] Last Admin: 09/04/18 16:35 Dose: 100 mg Enoxaparin Sodium (Lovenox) 40 mg SC DAILY [facility]; Protocol Gabapentin (Neurontin) 200 mg PO Q8 [facility] Last Admin: 09/04/18 16:31 Dose: 200 mg Lactated Ringer's (Lactated Ringer's) 1,000 mls @ 125 mls/hr IV .Q8H [facility] Last Admin: 09/04/18 13:11 Dose: Not Given Gentamicin Sulfate/Sodium Chloride (Gentamicin 80mg/50ml Ns) 80 mg in 50 mls @ 50 mls/hr IVPB Q8 [facility]; Protocol Last Admin: 09/04/18 10:25 Dose: 50 mls/hr Piperacillin Sod/Tazobactam (Sod 3.375 gm/ Sodium Chloride) 100 mls @ 100 mls/hr IVPB Q6 [facility]; Protocol Last Admin: 09/04/18 16:35 Dose: 100 mls/hr Methadone HCl (Methadone) 80 mg PO DAILY [facility] Last Admin: 09/04/18 10:35 Dose: 80 mg Mirtazapine (Remeron) 45 mg PO HS [facility] Morphine Sulfate (Morphine) 4 mg IVP Q4 PRN PRN Reason: Pain, severe (8-10) Last Admin: 09/04/18 07:06 Dose: 4 mg Morphine Sulfate (Morphine) 2 mg IVP Q4 PRN PRN Reason: Pain, moderate (4-7) Last Admin: 09/04/18 12:50 Dose: 2 mg Ondansetron HCl (Zofran Inj) 4 mg IVP Q4 PRN PRN Reason: Nausea/Vomiting Last Admin: 09/03/18 12:35 Dose: 4 mg - Labs Labs: 09/03/18 07:47 09/04/18 10:46 PT 12.1 Seconds (9.8-13.1) 09/02/18 05:50 INR 1.1 09/02/18 05:50 APTT 29.0 Seconds (25.6-37.1) 09/02/18 05:50 - Constitutional Appears: Well, No Acute Distress - Head Exam Head Exam: NORMAL INSPECTION - Eye Exam Eye Exam: PERRL - ENT Exam ENT Exam: Normal Exam - Neck Exam Neck Exam: Normal Inspection - Respiratory Exam Respiratory Exam: NORMAL BREATHING PATTERN - Cardiovascular Exam Cardiovascular Exam: REGULAR RHYTHM - GI/Abdominal Exam GI & Abdominal Exam: Soft, Tenderness (epigastric), Normal Bowel Sounds - Extremities Exam Extremities Exam: Normal Inspection - Back Exam Back Exam: NORMAL INSPECTION - Neurological Exam Neurological Exam: Alert, Oriented x3. absent: Motor Sensory Deficit - Psychiatric Exam Psychiatric exam: Anxious - Skin Skin Exam: Warm Assessment and Plan (1) Abdominal pain Status: Acute (2) Elevated liver enzymes Status: Acute (3) Common bile duct dilatation Status: Acute (4) Bacteremia due to Gram-negative bacteria Status: Acute (5) Hepatic steatosis Status: Acute (6) Hepatitis C Status: Chronic (7) Alcohol abuse Status: Chronic (8) Opiate abuse, continuous Status: Chronic - Assessment and Plan (Free Text) Plan: Liver enzymes decreased, ERCP for tomorrow, continue GentaMisha, f/u Echo, ID consult.
--- NOTE | 2018-09-04 19:13 | CP.PCM.PN ---
Subjective - Date & Time of Evaluation Date of Evaluation: 09/04/18 Time of Evaluation: 19:10 - Subjective Subjective: I D NOTE PATIENT EXAMINED,EMR REVIEWED CONTINUE ZOSYN/GENTAMICIN FULL CONSULT DICTATED Objective - Vital Signs/Intake and Output Vital Signs (last 24 hours): Temp Pulse Resp BP Pulse Ox 98.8 F 70 18 116/40 L 98 09/04/18 17:00 09/04/18 17:00 09/04/18 17:00 09/04/18 17:00 09/04/18 17:00 - Medications Medications: Current Medications Bupropion HCl (Wellbutrin Sr 150 Mg) 150 mg PO DAILY [facility] Last Admin: 09/04/18 10:26 Dose: 150 mg Docusate Sodium (Colace) 100 mg PO BID [facility] Last Admin: 09/04/18 16:35 Dose: 100 mg Enoxaparin Sodium (Lovenox) 40 mg SC DAILY [facility]; Protocol Gabapentin (Neurontin) 200 mg PO Q8 [facility] Last Admin: 09/04/18 16:31 Dose: 200 mg Lactated Ringer's (Lactated Ringer's) 1,000 mls @ 125 mls/hr IV .Q8H [facility] Last Admin: 09/04/18 13:11 Dose: Not Given Gentamicin Sulfate/Sodium Chloride (Gentamicin 80mg/50ml Ns) 80 mg in 50 mls @ 50 mls/hr IVPB Q8 [facility]; Protocol Last Admin: 09/04/18 18:35 Dose: 50 mls/hr Piperacillin Sod/Tazobactam (Sod 3.375 gm/ Sodium Chloride) 100 mls @ 100 mls/hr IVPB Q6 [facility]; Protocol Last Admin: 09/04/18 16:35 Dose: 100 mls/hr Methadone HCl (Methadone) 80 mg PO DAILY [facility] Last Admin: 09/04/18 10:35 Dose: 80 mg Mirtazapine (Remeron) 45 mg PO HS [facility] Morphine Sulfate (Morphine) 4 mg IVP Q4 PRN PRN Reason: Pain, severe (8-10) Last Admin: 09/04/18 07:06 Dose: 4 mg Morphine Sulfate (Morphine) 2 mg IVP Q4 PRN PRN Reason: Pain, moderate (4-7) Last Admin: 09/04/18 12:50 Dose: 2 mg Ondansetron HCl (Zofran Inj) 4 mg IVP Q4 PRN PRN Reason: Nausea/Vomiting Last Admin: 09/03/18 12:35 Dose: 4 mg - Labs Labs: 09/03/18 07:47 09/04/18 10:46 PT 12.1 Seconds (9.8-13.1) 09/02/18 05:50 INR 1.1 09/02/18 05:50 APTT 29.0 Seconds (25.6-37.1) 09/02/18 05:50
[2018-09-05] MEDS: Gentamicin 80mg/50ml NS 80 MG/50 ML BAG IVPB SCH ×3 (00:39→18:30)
[2018-09-05] MEDS: Morphine 4 MG/ML VIAL IVP PRN (00:54)
--- NOTE | 2018-09-05 03:47 | CON ---
DATE: 09/04/2018 INFECTIOUS DISEASE CONSULT HISTORY OF PRESENT ILLNESS: The patient is a 53-year-old male who came to the emergency room by EMS because of severe abdominal pain in the epigastric area for 3 days prior to admission with no relief. He described the pain as sharp and intermittent. The patient has a past history of asthma, DVT, drug abuse, and is on methadone. He also has a positive tox report for meth, cocaine, and alcohol. He also is 260 pounds and 5 feet 7 inches does qualify for morbid obesity. He states that the pain is worsening for the last few days and food makes it worse. He did not have any history of chills, fever, diarrhea, or urinary symptoms. PHYSICAL EXAMINATION: GENERAL: The patient is alert, cooperative, and oriented. HEENT: Within normal limits. NECK: Supple. HEART: Regular sinus rhythm. LUNGS: Some decreased breath sounds at the bases. ABDOMEN: Normal bowel sounds but soft with tenderness in the epigastric area radiating to the left upper quadrant. CT scan shows abnormal hepatic biliary findings including hepatic steatosis and diffuse biliary tree dilatation, predominantly extrahepatic but with mild to moderate intrahepatic biliary dilatation. There is no radiodense choledocholithiasis identified or obvious pancreas mass. Nevertheless, consider possible choledocholithiasis or ampullary pancreatic mass, not completely excluded near the head. Followup MRCP is advised with abdominal MRI without contrast. White count is 8.3, platelet count is 119. There is 83 polys, 7% bands were noted, and 91%. AST was 280 on 09/02/2018, has come down to 55 on antibiotics. ALT is 188, it came down to 74. Alkaline phosphatase is 489 and now down to 347. Lipase is 76. Urine appears negative on just urinalysis, toxicology already told. Serology, the patient's hepatitis C antibody is reactive. There is some question of being treated for hepatitis C. I have ordered a hepatitis C-RNA, PCR. IMPRESSION: My impression on this is biliary tract disease, rule out pancreatic mass, but main diagnosis is Klebsiella bacteremia. Gastroenterology is preparing to do endoscopic retrograde cholangiopancreatography, but I am unsure if he is aware of the positive blood culture. For present time, agree with treatment with Zosyn and with gentamicin. We will follow the complete blood count and also especially the platelet count. Boyd Quiros MD
[2018-09-05] MEDS: Lactated Ringer's 1,000 ML IV SCH ×3 (04:21→21:17)
[2018-09-05] MEDS: Piperacillin/Tazobact 3.375 GM in Sodium Chloride 0.9% 100 ML IVPB SCH ×5 (04:31→21:16)
[2018-09-05 07:57] LABS: ALB/GLOB RATIO 0.8 (1.0-2.1); ALBUMIN 3.3 g/dL (3.5-5.0); ALT/SGPT 58 U/L (21-72); AST/SGOT 41 U/L (17-59); BLOOD UREA NITROGEN 17 mg/dl (9-20); CALCIUM 8.7 mg/dL (8.4-10.2); GFR NON-AFRICAN AMERICAN > 60
[2018-09-05] MEDS: buPROPion SR 150 MG TABLET PO SCH (09:41)
[2018-09-05] MEDS ORDERED: EPINEPHrine 1 mg/ml (1:1000) Inj ONE (09:58)
[2018-09-05] MEDS ORDERED: Indomethacin 50 MG Suppository PR ONE ×3 (09:58→14:10)
[2018-09-05] MEDS ORDERED: Glucagon Recombinant 1 mg Inj ONE (09:58)
[2018-09-05 11:54] LABS: HEMOGLOBIN 12.6 g/dL (12.0-18.0); MEAN CELL VOLUME 89.2 fl (80.0-94.0); MEAN CORPUSCULAR HEMOGLOBIN 30.1 pg (27.0-31.0); MEAN CORPUSCULAR HGB CONC 33.8 g/dL (33.0-37.0); RBC 4.18 Mil/uL (4.40-5.90); RED CELL DISTRIBUTION WIDTH 13.6 % (11.5-14.5); WHITE BLOOD COUNT 5.8 K/uL (4.8-10.8)
--- NOTE | 2018-09-05 11:58 | CP.PCM.PN ---
Subjective - Date & Time of Evaluation Date of Evaluation: 09/05/18 Time of Evaluation: 10:00 - Subjective Subjective: patient was seen and examined at the bedside. Reports some mild epigastric pain. Objective - Vital Signs/Intake and Output Vital Signs (last 24 hours): Temp Pulse Resp BP Pulse Ox 97.8 F 63 20 111/71 93 L 09/05/18 08:21 09/05/18 08:21 09/05/18 08:21 09/05/18 08:21 09/05/18 08:21 - Medications Medications: Current Medications Bupropion HCl (Wellbutrin Sr 150 Mg) 150 mg PO DAILY [facility] Last Admin: 09/05/18 09:41 Dose: 150 mg Docusate Sodium (Colace) 100 mg PO BID [facility] Last Admin: 09/05/18 09:40 Dose: 100 mg Enoxaparin Sodium (Lovenox) 40 mg SC DAILY [facility]; Protocol Gabapentin (Neurontin) 200 mg PO Q8 [facility] Last Admin: 09/05/18 09:41 Dose: 200 mg Lactated Ringer's (Lactated Ringer's) 1,000 mls @ 125 mls/hr IV .Q8H [facility] Last Admin: 09/05/18 04:21 Dose: Not Given Gentamicin Sulfate/Sodium Chloride (Gentamicin 80mg/50ml Ns) 80 mg in 50 mls @ 50 mls/hr IVPB Q8 [facility]; Protocol Last Admin: 09/05/18 09:41 Dose: 50 mls/hr Piperacillin Sod/Tazobactam (Sod 3.375 gm/ Sodium Chloride) 100 mls @ 100 mls/hr IVPB Q6 [facility]; Protocol Last Admin: 09/05/18 10:57 Dose: 100 mls/hr Methadone HCl (Methadone) 80 mg PO DAILY [facility] Last Admin: 09/05/18 09:38 Dose: 80 mg Mirtazapine (Remeron) 45 mg PO HS [facility] Last Admin: 09/04/18 21:33 Dose: 45 mg Morphine Sulfate (Morphine) 4 mg IVP Q4 PRN PRN Reason: Pain, severe (8-10) Last Admin: 09/04/18 07:06 Dose: 4 mg Morphine Sulfate (Morphine) 2 mg IVP Q4 PRN PRN Reason: Pain, moderate (4-7) Last Admin: 09/05/18 00:54 Dose: 2 mg Ondansetron HCl (Zofran Inj) 4 mg IVP Q4 PRN PRN Reason: Nausea/Vomiting Last Admin: 09/03/18 12:35 Dose: 4 mg - Labs Labs: 09/05/18 11:15 09/05/18 06:50 PT 12.1 Seconds (9.8-13.1) 09/02/18 05:50 INR 1.1 09/02/18 05:50 APTT 29.0 Seconds (25.6-37.1) 09/02/18 05:50 - Constitutional Appears: Well, Non-toxic, No Acute Distress - Head Exam Head Exam: ATRAUMATIC, NORMAL INSPECTION, NORMOCEPHALIC - Eye Exam Eye Exam: EOMI, Normal appearance, PERRL Pupil Exam: NORMAL ACCOMODATION, PERRL - ENT Exam ENT Exam: Mucous Membranes Moist, Normal Exam - Neck Exam Neck Exam: Full ROM, Normal Inspection - Respiratory Exam Respiratory Exam: Clear to Ausculation Bilateral, NORMAL BREATHING PATTERN - Cardiovascular Exam Cardiovascular Exam: +S1, +S2 - GI/Abdominal Exam GI & Abdominal Exam: Soft, Normal Bowel Sounds Additional comments: very mildly tender in the epigastrium, ND, BS+, no rebound, no guarding, negativ e De Jesus's sign - Rectal Exam Rectal Exam: Deferred - Extremities Exam Extremities Exam: Full ROM, Normal Inspection - Neurological Exam Neurological Exam: Alert, Awake, Oriented x3 - Psychiatric Exam Psychiatric exam: Normal Affect, Normal Mood - Skin Skin Exam: Dry, Intact, Normal Color, Warm Assessment and Plan - Assessment and Plan (Free Text) Assessment: 53 y.o. male with elevated LFTs and dialated CBD on the CT scan Plan: - Keep NPO - IV fluids - pain control - Patient is for ERCP today with Gastroenterology - Monitor LFTs - repeat labs in am - DVT ppx - Will follow
[2018-09-05] MEDS ORDERED: Lactated Ringer's 500 ML IV ONE (13:00)
[2018-09-05] MEDS ORDERED: Propofol 10 mg/ml Inj (20 ML) ONE (14:04)
[2018-09-05] MEDS ORDERED: Midazolam 2 MG/2 ML VIAL ONE (14:04)
[2018-09-05] MEDS ORDERED: Iohexol 240 (50 ml) ONE (14:15)
--- NOTE | 2018-09-05 17:53 | CP.PCM.PN ---
Subjective - Date & Time of Evaluation Date of Evaluation: 09/05/18 Time of Evaluation: 11:30 - Subjective Subjective: F/U Abdominal pain. Pt c/o of epigastric pain, alleviated wit Morphine, no A/D, smiling Objective - Vital Signs/Intake and Output Vital Signs (last 24 hours): Temp Pulse Resp BP Pulse Ox 98.3 F 74 20 112/72 94 L 09/05/18 17:00 09/05/18 17:00 09/05/18 17:00 09/05/18 17:00 09/05/18 17:00 Intake and Output: 09/05/18 09/05/18 06:59 18:59 Intake Total 450 Balance 450 - Medications Medications: Current Medications Bupropion HCl (Wellbutrin Sr 150 Mg) 150 mg PO DAILY [facility] Last Admin: 09/05/18 09:41 Dose: 150 mg Docusate Sodium (Colace) 100 mg PO BID [facility] Last Admin: 09/05/18 09:40 Dose: 100 mg Enoxaparin Sodium (Lovenox) 40 mg SC DAILY [facility]; Protocol Gabapentin (Neurontin) 200 mg PO Q8 [facility] Last Admin: 09/05/18 09:41 Dose: 200 mg Lactated Ringer's (Lactated Ringer's) 1,000 mls @ 125 mls/hr IV .Q8H [facility] Last Admin: 09/05/18 13:00 Dose: Not Given Gentamicin Sulfate/Sodium Chloride (Gentamicin 80mg/50ml Ns) 80 mg in 50 mls @ 50 mls/hr IVPB Q8 [facility]; Protocol Last Admin: 09/05/18 09:41 Dose: 50 mls/hr Piperacillin Sod/Tazobactam (Sod 3.375 gm/ Sodium Chloride) 100 mls @ 100 mls/hr IVPB Q6 [facility]; Protocol Last Admin: 09/05/18 16:45 Dose: 100 mls/hr Methadone HCl (Methadone) 80 mg PO DAILY [facility] Last Admin: 09/05/18 09:38 Dose: 80 mg Mirtazapine (Remeron) 45 mg PO HS [facility] Last Admin: 09/04/18 21:33 Dose: 45 mg Morphine Sulfate (Morphine) 4 mg IVP Q4 PRN PRN Reason: Pain, severe (8-10) Last Admin: 09/04/18 07:06 Dose: 4 mg Morphine Sulfate (Morphine) 2 mg IVP Q4 PRN PRN Reason: Pain, moderate (4-7) Last Admin: 09/05/18 00:54 Dose: 2 mg Ondansetron HCl (Zofran Inj) 4 mg IVP Q4 PRN PRN Reason: Nausea/Vomiting Last Admin: 09/03/18 12:35 Dose: 4 mg - Labs Labs: 09/05/18 11:15 09/05/18 06:50 PT 12.1 Seconds (9.8-13.1) 09/02/18 05:50 INR 1.1 09/02/18 05:50 APTT 29.0 Seconds (25.6-37.1) 09/02/18 05:50 - Constitutional Appears: No Acute Distress - Head Exam Head Exam: NORMAL INSPECTION - Eye Exam Eye Exam: PERRL - ENT Exam ENT Exam: Normal Exam - Neck Exam Neck Exam: Normal Inspection - Respiratory Exam Respiratory Exam: NORMAL BREATHING PATTERN - Cardiovascular Exam Cardiovascular Exam: REGULAR RHYTHM - GI/Abdominal Exam GI & Abdominal Exam: Soft, Tenderness (mild epigastric), Normal Bowel Sounds - Extremities Exam Extremities Exam: Normal Inspection - Back Exam Back Exam: NORMAL INSPECTION - Neurological Exam Neurological Exam: Alert, Oriented x3. absent: Motor Sensory Deficit - Psychiatric Exam Psychiatric exam: Anxious - Skin Skin Exam: Warm Assessment and Plan (1) Abdominal pain Status: Acute (2) Elevated liver enzymes Status: Acute (3) Common bile duct dilatation Status: Acute (4) Bacteremia due to Gram-negative bacteria Status: Acute (5) Hepatic steatosis Status: Acute (6) Hepatitis C Status: Chronic (7) Alcohol abuse Status: Chronic (8) Opiate abuse, continuous Status: Chronic - Assessment and Plan (Free Text) Plan: Continue Zosyn, Genta and rest of Tx. For ERCP today.
[2018-09-06] MEDS: Gentamicin 80mg/50ml NS 80 MG/50 ML BAG IVPB SCH ×3 (00:36→16:43)
[2018-09-06] MEDS: Piperacillin/Tazobact 3.375 GM in Sodium Chloride 0.9% 100 ML IVPB SCH ×4 (04:24→22:29)
[2018-09-06] MEDS: Lactated Ringer's 1,000 ML IV SCH ×3 (05:13→20:00)
[2018-09-06 06:22] LABS: BASO % 0.5 % (0.0-2.0); EOS # 0.2 K/uL (0.0-0.7); EOS % 3.9 % (0.0-4.0); HEMOGLOBIN 11.7 g/dL (12.0-18.0); LYMPH # 0.9 K/uL (1.0-4.3); LYMPH % 15.9 % (20.0-40.0); MEAN CELL VOLUME 89.3 fl (80.0-94.0); MEAN CORPUSCULAR HEMOGLOBIN 30.4 pg (27.0-31.0); MONO # 0.8 K/uL (0.0-0.8); MONO % 14.1 % (0.0-10.0); NEUT # 3.5 K/uL (1.8-7.0); NEUT % 65.6 % (50.0-75.0); NRBC % 0.1 % (0.0-0.0); RBC 3.85 Mil/uL (4.40-5.90); RED CELL DISTRIBUTION WIDTH 13.9 % (11.5-14.5); WHITE BLOOD COUNT 5.4 K/uL (4.8-10.8)
--- NOTE | 2018-09-06 07:11 | CP.PCM.PN ---
<Jamie Moyer - Last Filed: 09/06/18 09:22> Subjective - Date & Time of Evaluation Date of Evaluation: 09/06/18 Time of Evaluation: 07:09 - Subjective Subjective: General Surgery Progress Note for Dr. Graham This 53M was seen and examined this AM at bedside no acute events reported overnight. He reports his abdominal pain is resolved. He denies any nausea or vomiting, SOB or chest pain. No new complaints at this time. He is currently requesting a regular diet. Objective - Vital Signs/Intake and Output Vital Signs (last 24 hours): Temp Pulse Resp BP Pulse Ox 98.4 F 61 18 124/77 94 L 09/06/18 01:00 09/06/18 01:00 09/06/18 01:00 09/06/18 01:00 09/06/18 01:00 - Medications Medications: Current Medications Bupropion HCl (Wellbutrin Sr 150 Mg) 150 mg PO DAILY [facility] Last Admin: 09/05/18 09:41 Dose: 150 mg Docusate Sodium (Colace) 100 mg PO BID [facility] Last Admin: 09/05/18 18:26 Dose: 100 mg Enoxaparin Sodium (Lovenox) 40 mg SC DAILY [facility]; Protocol Gabapentin (Neurontin) 200 mg PO Q8 [facility] Last Admin: 09/06/18 00:39 Dose: 200 mg Lactated Ringer's (Lactated Ringer's) 1,000 mls @ 125 mls/hr IV .Q8H [facility] Last Admin: 09/05/18 21:17 Dose: 125 mls/hr Gentamicin Sulfate/Sodium Chloride (Gentamicin 80mg/50ml Ns) 80 mg in 50 mls @ 50 mls/hr IVPB Q8 [facility]; Protocol Last Admin: 09/06/18 00:36 Dose: 50 mls/hr Piperacillin Sod/Tazobactam (Sod 3.375 gm/ Sodium Chloride) 100 mls @ 100 mls/hr IVPB Q6 [facility]; Protocol Last Admin: 09/06/18 04:24 Dose: 100 mls/hr Methadone HCl (Methadone) 80 mg PO DAILY [facility] Last Admin: 09/05/18 09:38 Dose: 80 mg Mirtazapine (Remeron) 45 mg PO HS [facility] Last Admin: 09/05/18 21:18 Dose: 45 mg Morphine Sulfate (Morphine) 4 mg IVP Q4 PRN PRN Reason: Pain, severe (8-10) Last Admin: 09/04/18 07:06 Dose: 4 mg Morphine Sulfate (Morphine) 2 mg IVP Q4 PRN PRN Reason: Pain, moderate (4-7) Last Admin: 09/05/18 00:54 Dose: 2 mg Ondansetron HCl (Zofran Inj) 4 mg IVP Q4 PRN PRN Reason: Nausea/Vomiting Last Admin: 09/03/18 12:35 Dose: 4 mg - Labs Labs: 09/06/18 05:25 09/05/18 06:50 PT 12.1 Seconds (9.8-13.1) 09/02/18 05:50 INR 1.1 09/02/18 05:50 APTT 29.0 Seconds (25.6-37.1) 09/02/18 05:50 - Constitutional Appears: Non-toxic, No Acute Distress - Head Exam Head Exam: ATRAUMATIC, NORMOCEPHALIC - Eye Exam Eye Exam: EOMI, Normal appearance - ENT Exam ENT Exam: Mucous Membranes Moist - Respiratory Exam Respiratory Exam: NORMAL BREATHING PATTERN - Cardiovascular Exam Cardiovascular Exam: REGULAR RHYTHM - GI/Abdominal Exam GI & Abdominal Exam: Soft. absent: Distended, Firm, Guarding, Rigid, Tenderness - Neurological Exam Neurological Exam: Alert, Awake - Psychiatric Exam Psychiatric exam: Normal Affect, Normal Mood - Skin Skin Exam: Dry, Intact Assessment and Plan - Assessment and Plan (Free Text) Assessment: 53M with choledocholithiasis S/P ERCP with stone extraction Regular diet today Will plan for OR possibly saturday for removal of GB D/W Dr. Santos Moyer PGY3 <Channing Graham - Last Filed: 09/06/18 23:52> Objective - Vital Signs/Intake and Output Vital Signs (last 24 hours): Temp Pulse Resp BP Pulse Ox 97.8 F 79 20 94/60 L 95 09/06/18 16:19 09/06/18 16:19 09/06/18 16:19 09/06/18 16:19 09/06/18 16:19 - Medications Medications: Current Medications Bupropion HCl (Wellbutrin Sr 150 Mg) 150 mg PO DAILY [facility] Last Admin: 09/06/18 09:14 Dose: 150 mg Docusate Sodium (Colace) 100 mg PO BID [facility] Last Admin: 09/06/18 16:45 Dose: 100 mg Enoxaparin Sodium (Lovenox) 40 mg SC DAILY [facility]; Protocol Gabapentin (Neurontin) 200 mg PO Q8 [facility] Last Admin: 09/06/18 16:46 Dose: 200 mg Lactated Ringer's (Lactated Ringer's) 1,000 mls @ 125 mls/hr IV .Q8H [facility] Last Admin: 09/06/18 16:45 Dose: 125 mls/hr Gentamicin Sulfate/Sodium Chloride (Gentamicin 80mg/50ml Ns) 80 mg in 50 mls @ 50 mls/hr IVPB Q8 [facility]; Protocol Last Admin: 09/06/18 16:43 Dose: 50 mls/hr Piperacillin Sod/Tazobactam (Sod 3.375 gm/ Sodium Chloride) 100 mls @ 100 mls/hr IVPB Q6 [facility]; Protocol Last Admin: 09/06/18 22:29 Dose: 100 mls/hr Methadone HCl (Methadone) 80 mg PO DAILY [facility] Last Admin: 09/06/18 09:19 Dose: 80 mg Mirtazapine (Remeron) 45 mg PO HS [facility] Last Admin: 09/06/18 22:30 Dose: 45 mg Morphine Sulfate (Morphine) 4 mg IVP Q4 PRN PRN Reason: Pain, severe (8-10) Last Admin: 09/04/18 07:06 Dose: 4 mg Morphine Sulfate (Morphine) 2 mg IVP Q4 PRN PRN Reason: Pain, moderate (4-7) Last Admin: 09/05/18 00:54 Dose: 2 mg Ondansetron HCl (Zofran Inj) 4 mg IVP Q4 PRN PRN Reason: Nausea/Vomiting Last Admin: 09/03/18 12:35 Dose: 4 mg - Labs Labs: 09/06/18 05:25 09/05/18 06:50 PT 12.1 Seconds (9.8-13.1) 09/02/18 05:50 INR 1.1 09/02/18 05:50 APTT 29.0 Seconds (25.6-37.1) 09/02/18 05:50 Assessment and Plan - Assessment and Plan (Free Text) Assessment: agree with resident scheduled laparoscopic cholecystectomy on 3/4 repeat LFTs, Tbili
[2018-09-06] MEDS: buPROPion SR 150 MG TABLET PO SCH (09:14)
--- NOTE | 2018-09-06 14:40 | CP.PCM.PN ---
Subjective - Date & Time of Evaluation Date of Evaluation: 09/06/18 Time of Evaluation: 09:40 - Subjective Subjective: F/U Abdominal pain. S/P ERCP yesterday with stone extraction, doing well, no c/o of abdominal pain, eating regular food. Objective - Vital Signs/Intake and Output Vital Signs (last 24 hours): Temp Pulse Resp BP Pulse Ox 97.6 F 60 20 103/61 97 09/06/18 08:16 09/06/18 08:16 09/06/18 08:16 09/06/18 08:16 09/06/18 08:16 - Medications Medications: Current Medications Bupropion HCl (Wellbutrin Sr 150 Mg) 150 mg PO DAILY [facility] Last Admin: 09/06/18 09:14 Dose: 150 mg Docusate Sodium (Colace) 100 mg PO BID [facility] Last Admin: 09/06/18 09:14 Dose: 100 mg Enoxaparin Sodium (Lovenox) 40 mg SC DAILY [facility]; Protocol Gabapentin (Neurontin) 200 mg PO Q8 [facility] Last Admin: 09/06/18 09:15 Dose: 200 mg Lactated Ringer's (Lactated Ringer's) 1,000 mls @ 125 mls/hr IV .Q8H [facility] Last Admin: 09/06/18 05:13 Dose: Not Given Gentamicin Sulfate/Sodium Chloride (Gentamicin 80mg/50ml Ns) 80 mg in 50 mls @ 50 mls/hr IVPB Q8 [facility]; Protocol Last Admin: 09/06/18 09:13 Dose: 50 mls/hr Piperacillin Sod/Tazobactam (Sod 3.375 gm/ Sodium Chloride) 100 mls @ 100 mls/hr IVPB Q6 [facility]; Protocol Last Admin: 09/06/18 09:12 Dose: 100 mls/hr Methadone HCl (Methadone) 80 mg PO DAILY [facility] Last Admin: 09/06/18 09:19 Dose: 80 mg Mirtazapine (Remeron) 45 mg PO HS [facility] Last Admin: 09/05/18 21:18 Dose: 45 mg Morphine Sulfate (Morphine) 4 mg IVP Q4 PRN PRN Reason: Pain, severe (8-10) Last Admin: 09/04/18 07:06 Dose: 4 mg Morphine Sulfate (Morphine) 2 mg IVP Q4 PRN PRN Reason: Pain, moderate (4-7) Last Admin: 09/05/18 00:54 Dose: 2 mg Ondansetron HCl (Zofran Inj) 4 mg IVP Q4 PRN PRN Reason: Nausea/Vomiting Last Admin: 09/03/18 12:35 Dose: 4 mg - Labs Labs: 09/06/18 05:25 09/05/18 06:50 PT 12.1 Seconds (9.8-13.1) 09/02/18 05:50 INR 1.1 09/02/18 05:50 APTT 29.0 Seconds (25.6-37.1) 09/02/18 05:50 - Constitutional Appears: No Acute Distress - Head Exam Head Exam: NORMAL INSPECTION - Eye Exam Eye Exam: PERRL - ENT Exam ENT Exam: Normal Exam - Neck Exam Neck Exam: Normal Inspection - Respiratory Exam Respiratory Exam: NORMAL BREATHING PATTERN - Cardiovascular Exam Cardiovascular Exam: REGULAR RHYTHM - GI/Abdominal Exam GI & Abdominal Exam: Soft. absent: Distended, Guarding, Tenderness, Rebound - Extremities Exam Extremities Exam: Normal Inspection - Back Exam Back Exam: NORMAL INSPECTION - Neurological Exam Neurological Exam: Alert, Oriented x3. absent: Motor Sensory Deficit - Psychiatric Exam Psychiatric exam: Normal Mood - Skin Skin Exam: Warm Assessment and Plan (1) Abdominal pain Status: Acute (2) Elevated liver enzymes Status: Acute (3) Common bile duct dilatation Status: Acute (4) Bacteremia due to Gram-negative bacteria Status: Acute (5) Hepatic steatosis Status: Acute (6) Hepatitis C Status: Chronic (7) Alcohol abuse Status: Chronic (8) Opiate abuse, continuous Status: Chronic - Assessment and Plan (Free Text) Plan: S/P ERCO POD# 1, continue Zosyn, Genta, Methadone and rest of Tx. Scheduled for OR on Saturday for Laparoscopy Cholecystectomy.
[2018-09-07] MEDS: Gentamicin 80mg/50ml NS 80 MG/50 ML BAG IVPB SCH ×3 (00:44→17:06)
[2018-09-07] MEDS: Lactated Ringer's 1,000 ML IV SCH ×4 (00:45→21:25)
[2018-09-07] MEDS: Piperacillin/Tazobact 3.375 GM in Sodium Chloride 0.9% 100 ML IVPB SCH ×4 (03:27→21:23)
--- NOTE | 2018-09-07 07:25 | CP.PCM.PN ---
<Jah Soto Davey - Last Filed: 09/07/18 07:23> Subjective - Date & Time of Evaluation Date of Evaluation: 09/07/18 Time of Evaluation: 07:23 - Subjective Subjective: Gen Sx: Dr Graham Pt S&E. s/p ERCP. Feeling much better. Pain entirely resolved. Tolerating diet. Denies N/v, F/C. In agreement with plan for cholecystectomy. No complaints at this time. Passing flatus, OOB and ambulating Objective - Vital Signs/Intake and Output Vital Signs (last 24 hours): Temp Pulse Resp BP Pulse Ox 97.6 F 70 20 106/72 94 L 09/07/18 00:24 09/07/18 00:24 09/07/18 00:24 09/07/18 00:24 09/07/18 00:24 - Medications Medications: Current Medications Bupropion HCl (Wellbutrin Sr 150 Mg) 150 mg PO DAILY [facility] Last Admin: 09/06/18 09:14 Dose: 150 mg Docusate Sodium (Colace) 100 mg PO BID [facility] Last Admin: 09/06/18 16:45 Dose: 100 mg Enoxaparin Sodium (Lovenox) 40 mg SC DAILY [facility]; Protocol Gabapentin (Neurontin) 200 mg PO Q8 [facility] Last Admin: 09/07/18 00:43 Dose: 200 mg Lactated Ringer's (Lactated Ringer's) 1,000 mls @ 125 mls/hr IV .Q8H [facility] Last Admin: 09/07/18 05:14 Dose: Not Given Gentamicin Sulfate/Sodium Chloride (Gentamicin 80mg/50ml Ns) 80 mg in 50 mls @ 50 mls/hr IVPB Q8 [facility]; Protocol Last Admin: 09/07/18 00:44 Dose: 50 mls/hr Piperacillin Sod/Tazobactam (Sod 3.375 gm/ Sodium Chloride) 100 mls @ 100 mls/hr IVPB Q6 [facility]; Protocol Last Admin: 09/07/18 03:27 Dose: 100 mls/hr Methadone HCl (Methadone) 80 mg PO DAILY [facility] Last Admin: 09/06/18 09:19 Dose: 80 mg Mirtazapine (Remeron) 45 mg PO HS [facility] Last Admin: 09/06/18 22:30 Dose: 45 mg Morphine Sulfate (Morphine) 4 mg IVP Q4 PRN PRN Reason: Pain, severe (8-10) Last Admin: 09/04/18 07:06 Dose: 4 mg Morphine Sulfate (Morphine) 2 mg IVP Q4 PRN PRN Reason: Pain, moderate (4-7) Last Admin: 09/05/18 00:54 Dose: 2 mg Ondansetron HCl (Zofran Inj) 4 mg IVP Q4 PRN PRN Reason: Nausea/Vomiting Last Admin: 09/03/18 12:35 Dose: 4 mg - Labs Labs: 09/06/18 05:25 09/05/18 06:50 PT 12.1 Seconds (9.8-13.1) 09/02/18 05:50 INR 1.1 09/02/18 05:50 APTT 29.0 Seconds (25.6-37.1) 09/02/18 05:50 - Constitutional Appears: Non-toxic, No Acute Distress - ENT Exam ENT Exam: Mucous Membranes Moist - Respiratory Exam Respiratory Exam: absent: Accessory Muscle Use, Respiratory Distress - Cardiovascular Exam Cardiovascular Exam: REGULAR RHYTHM. absent: Tachycardia - GI/Abdominal Exam GI & Abdominal Exam: Soft. absent: Distended, Guarding, Rigid, Tenderness - Neurological Exam Neurological Exam: Alert, Awake, Oriented x3 Assessment and Plan - Assessment and Plan (Free Text) Assessment: 53M with choledocholithiasis s/p ERCP w/ extraction Plan: cont current mgmt IV fluids, abx NPO @ [place] plan for lap [place] tomorrow will d./w Dr Santos Soto, PGY4 <Channing Graham - Last Filed: 09/07/18 22:53> Objective - Vital Signs/Intake and Output Vital Signs (last 24 hours): Temp Pulse Resp BP Pulse Ox 98.3 F 81 20 117/69 96 09/07/18 16:18 09/07/18 16:18 09/07/18 16:18 09/07/18 16:18 09/07/18 16:18 - Medications Medications: Current Medications Bupropion HCl (Wellbutrin Sr 150 Mg) 150 mg PO DAILY [facility] Last Admin: 09/07/18 09:02 Dose: 150 mg Docusate Sodium (Colace) 100 mg PO BID [facility] Last Admin: 09/07/18 17:06 Dose: 100 mg Enoxaparin Sodium (Lovenox) 40 mg SC DAILY [facility]; Protocol Gabapentin (Neurontin) 200 mg PO Q8 [facility] Last Admin: 09/07/18 17:06 Dose: 200 mg Lactated Ringer's (Lactated Ringer's) 1,000 mls @ 125 mls/hr IV .Q8H [facility] Last Admin: 09/07/18 15:20 Dose: 125 mls/hr Gentamicin Sulfate/Sodium Chloride (Gentamicin 80mg/50ml Ns) 80 mg in 50 mls @ 50 mls/hr IVPB Q8 [facility]; Protocol Last Admin: 09/07/18 17:06 Dose: 50 mls/hr Piperacillin Sod/Tazobactam (Sod 3.375 gm/ Sodium Chloride) 100 mls @ 100 mls/hr IVPB Q6 [facility]; Protocol Last Admin: 09/07/18 21:23 Dose: 100 mls/hr Methadone HCl (Methadone) 80 mg PO DAILY [facility] Last Admin: 09/07/18 09:09 Dose: 80 mg Mirtazapine (Remeron) 45 mg PO HS [facility] Last Admin: 09/07/18 21:24 Dose: 45 mg Morphine Sulfate (Morphine) 4 mg IVP Q4 PRN PRN Reason: Pain, severe (8-10) Last Admin: 09/04/18 07:06 Dose: 4 mg Morphine Sulfate (Morphine) 2 mg IVP Q4 PRN PRN Reason: Pain, moderate (4-7) Last Admin: 09/05/18 00:54 Dose: 2 mg Ondansetron HCl (Zofran Inj) 4 mg IVP Q4 PRN PRN Reason: Nausea/Vomiting Last Admin: 09/03/18 12:35 Dose: 4 mg - Labs Labs: 09/07/18 06:57 09/07/18 06:57 PT 12.1 Seconds (9.8-13.1) 09/02/18 05:50 INR 1.1 09/02/18 05:50 APTT 29.0 Seconds (25.6-37.1) 09/02/18 05:50 Assessment and Plan - Assessment and Plan (Free Text) Plan: to OR in AM for laparoscopic cholecystectomy possible open
[2018-09-07 07:29] LABS: HEMOGLOBIN 11.2 g/dL (12.0-18.0); MEAN CELL VOLUME 90.9 fl (80.0-94.0); MEAN CORPUSCULAR HEMOGLOBIN 30.3 pg (27.0-31.0); MEAN CORPUSCULAR HGB CONC 33.3 g/dL (33.0-37.0); RBC 3.7 Mil/uL (4.40-5.90); RED CELL DISTRIBUTION WIDTH 14.2 % (11.5-14.5); WHITE BLOOD COUNT 5.4 K/uL (4.8-10.8)
[2018-09-07 07:36] LABS: ALB/GLOB RATIO 0.8 (1.0-2.1); ALBUMIN 3.3 g/dL (3.5-5.0); ALT/SGPT 45 U/L (21-72); AST/SGOT 30 U/L (17-59); BLOOD UREA NITROGEN 17 mg/dl (9-20); CALCIUM 8.7 mg/dL (8.4-10.2); GFR NON-AFRICAN AMERICAN > 60
[2018-09-07] MEDS: buPROPion SR 150 MG TABLET PO SCH (09:02)
--- NOTE | 2018-09-07 10:41 | RAD ---
Date of service: 09/06/2018 PROCEDURE: CHEST RADIOGRAPH, 1 VIEW HISTORY: pre-op COMPARISON: Chest radiograph dated 04/16/2017. FINDINGS: LUNGS: Clear. PLEURA: No pneumothorax or pleural fluid seen. CARDIOVASCULAR: Aortic atherosclerotic calcifications. Cardiomediastinal silhouette stably enlarged. OSSEOUS STRUCTURES: Unchanged. VISUALIZED UPPER ABDOMEN: Normal. OTHER FINDINGS: None. IMPRESSION: No active disease.
--- NOTE | 2018-09-07 10:42 | RAD ---
Date of service: 09/06/2018 PROCEDURE: Bilateral Knee Radiographs. HISTORY: knee pioan COMPARISON: Right knee radiographs dated 01/10/2016. No prior imaging of the left knee. FINDINGS: BONES: Right Knee: No acute fracture. Left Knee: No acute fracture. JOINTS: Right Knee: Progression of tricompartmental narrowing with degenerative spurring. Left knee: Tricompartmental narrowing with degenerative spurring. SOFT TISSUES: Right Knee: Normal. Left Knee: Normal. JOINT EFFUSION: Right Knee: None. Left Knee: None. OTHER FINDINGS: None. IMPRESSION: No demonstrated fracture or dislocation. Right worse than left tricompartmental arthritic changes.
--- NOTE | 2018-09-07 14:54 | CP.PCM.PN ---
Subjective - Date & Time of Evaluation Date of Evaluation: 09/07/18 - Subjective Subjective: F/U Abdominal pain. no AD, no abdominal pain , no N/V, tolerating well regular Objective - Vital Signs/Intake and Output Vital Signs (last 24 hours): Temp Pulse Resp BP Pulse Ox 98.1 F 69 20 130/84 97 09/07/18 08:09 09/07/18 08:09 09/07/18 08:09 09/07/18 08:09 09/07/18 08:09 - Medications Medications: Current Medications Bupropion HCl (Wellbutrin Sr 150 Mg) 150 mg PO DAILY [facility] Last Admin: 09/07/18 09:02 Dose: 150 mg Docusate Sodium (Colace) 100 mg PO BID [facility] Last Admin: 09/07/18 09:01 Dose: 100 mg Enoxaparin Sodium (Lovenox) 40 mg SC DAILY [facility]; Protocol Gabapentin (Neurontin) 200 mg PO Q8 [facility] Last Admin: 09/07/18 09:02 Dose: 200 mg Lactated Ringer's (Lactated Ringer's) 1,000 mls @ 125 mls/hr IV .Q8H [facility] Last Admin: 09/07/18 05:14 Dose: Not Given Gentamicin Sulfate/Sodium Chloride (Gentamicin 80mg/50ml Ns) 80 mg in 50 mls @ 50 mls/hr IVPB Q8 [facility]; Protocol Last Admin: 09/07/18 09:01 Dose: 50 mls/hr Piperacillin Sod/Tazobactam (Sod 3.375 gm/ Sodium Chloride) 100 mls @ 100 mls/hr IVPB Q6 [facility]; Protocol Last Admin: 09/07/18 11:30 Dose: 100 mls/hr Methadone HCl (Methadone) 80 mg PO DAILY [facility] Last Admin: 09/07/18 09:09 Dose: 80 mg Mirtazapine (Remeron) 45 mg PO HS [facility] Last Admin: 09/06/18 22:30 Dose: 45 mg Morphine Sulfate (Morphine) 4 mg IVP Q4 PRN PRN Reason: Pain, severe (8-10) Last Admin: 09/04/18 07:06 Dose: 4 mg Morphine Sulfate (Morphine) 2 mg IVP Q4 PRN PRN Reason: Pain, moderate (4-7) Last Admin: 09/05/18 00:54 Dose: 2 mg Ondansetron HCl (Zofran Inj) 4 mg IVP Q4 PRN PRN Reason: Nausea/Vomiting Last Admin: 09/03/18 12:35 Dose: 4 mg - Labs Labs: 09/07/18 06:57 09/07/18 06:57 PT 12.1 Seconds (9.8-13.1) 09/02/18 05:50 INR 1.1 09/02/18 05:50 APTT 29.0 Seconds (25.6-37.1) 09/02/18 05:50 - Constitutional Appears: No Acute Distress - Head Exam Head Exam: NORMAL INSPECTION - Eye Exam Eye Exam: PERRL - ENT Exam ENT Exam: Normal Exam - Neck Exam Neck Exam: Normal Inspection - Respiratory Exam Respiratory Exam: Clear to Ausculation Bilateral - Cardiovascular Exam Cardiovascular Exam: REGULAR RHYTHM - GI/Abdominal Exam GI & Abdominal Exam: Soft, Normal Bowel Sounds. absent: Distended, Guarding, Tenderness, Rebound - Extremities Exam Additional comments: edema L/E - Back Exam Back Exam: NORMAL INSPECTION - Neurological Exam Neurological Exam: Alert, Oriented x3 Additional comments: No focal motor/sensory deficit. - Psychiatric Exam Psychiatric exam: Normal Affect - Skin Skin Exam: Warm Assessment and Plan (1) Abdominal pain Status: Acute (2) Elevated liver enzymes Status: Acute (3) Common bile duct dilatation Status: Acute (4) Bacteremia due to Gram-negative bacteria Status: Acute (5) Hepatic steatosis Status: Acute (6) Hepatitis C Status: Chronic (7) Alcohol abuse Status: Chronic (8) Opiate abuse, continuous Status: Chronic (9) S/P ERCP Status: Acute - Assessment and Plan (Free Text) Plan: continue Zosyn, Genya, Methadone and rest of treatment, medically cleared for OR Lap [place] in am
[2018-09-08] MEDS: Gentamicin 80mg/50ml NS 80 MG/50 ML BAG IVPB SCH ×3 (00:18→17:27)
[2018-09-08] MEDS: Lactated Ringer's 1,000 ML IV SCH ×3 (04:55→20:04)
[2018-09-08] MEDS: Piperacillin/Tazobact 3.375 GM in Sodium Chloride 0.9% 100 ML IVPB SCH ×4 (04:57→20:59)
[2018-09-08 08:14] LABS: BASO % 0.6 % (0.0-2.0); EOS # 0.2 K/uL (0.0-0.7); EOS % 3.3 % (0.0-4.0); HEMOGLOBIN 10.8 g/dL (12.0-18.0); LYMPH # 1.1 K/uL (1.0-4.3); LYMPH % 18.1 % (20.0-40.0); MEAN CELL VOLUME 89.7 fl (80.0-94.0); MEAN CORPUSCULAR HEMOGLOBIN 29.7 pg (27.0-31.0); MEAN CORPUSCULAR HGB CONC 33.1 g/dL (33.0-37.0); MEAN PLATELET VOLUME 7.6 fl (7.2-11.7); MONO # 0.5 K/uL (0.0-0.8); MONO % 9.3 % (0.0-10.0); NEUT # 4.1 K/uL (1.8-7.0); NEUT % 68.7 % (50.0-75.0); RBC 3.63 Mil/uL (4.40-5.90); RED CELL DISTRIBUTION WIDTH 14.3 % (11.5-14.5); WHITE BLOOD COUNT 5.9 K/uL (4.8-10.8)
[2018-09-08 08:27] LABS: INR 1.1; PROTHROMBIN TIME 12.5 Seconds (9.8-13.1)
[2018-09-08 08:29] LABS: PARTIAL THROMBOPLASTIN TIME 31.7 Seconds (25.6-37.1)
[2018-09-08 08:43] LABS: ALB/GLOB RATIO 0.8 (1.0-2.1); ALBUMIN 3.3 g/dL (3.5-5.0); ALT/SGPT 29 U/L (21-72); AST/SGOT 29 U/L (17-59); BLOOD UREA NITROGEN 13 mg/dl (9-20); CALCIUM 9.1 mg/dL (8.4-10.2); GFR NON-AFRICAN AMERICAN > 60
[2018-09-08] MEDS ORDERED: Bupivacaine 0.5% Inj(30mL) ONE (08:43)
[2018-09-08] MEDS: buPROPion SR 150 MG TABLET PO SCH (08:52)
[2018-09-08] MEDS ORDERED: Propofol 10 mg/ml Inj (20 ML) ONE (08:57)
[2018-09-08] MEDS ORDERED: Succinylcholine Chloride 20 mg/ml Syr (5 ml) IV ONE (08:58)
[2018-09-08] MEDS ORDERED: Lidocaine 4% (Laryng-O-Jet) Kit MM ONE (08:58)
[2018-09-08] MEDS ORDERED: Midazolam 2 MG/2 ML VIAL ONE (08:58)
[2018-09-08] MEDS ORDERED: Rocuronium 10 mg/ml (5 ml) ONE (08:58)
[2018-09-08] MEDS ORDERED: Lactated Ringer's 1,000 ML IV ONE ×2 (09:20→11:14)
[2018-09-08] MEDS ORDERED: Succinylcholine 200 mg/10 ml Inj IV ONE (09:28)
[2018-09-08] MEDS ORDERED: Piperacillin/Tazobact 3.375 gm Inj IVPB ONE (09:30)
[2018-09-08] MEDS ORDERED: Bupivacaine 0.5% 50 ML IJ ONE ×3 (10:03→11:19)
[2018-09-08] MEDS ORDERED: Dexamethasone 4 mg/1 ml ONE (10:10)
[2018-09-08] MEDS ORDERED: Morphine 1 mg/ml preservative-free Inj(Duramorph) ONE (10:15)
[2018-09-08] MEDS ORDERED: Neostigmine 1:1000 (1 mg/ml) Inj ONE (10:16)
[2018-09-08] MEDS ORDERED: HYDROmorphone 0.5 mg/0.5 ml ISec IVP PRN (11:41)
--- NOTE | 2018-09-08 11:52 | PCM.SURG1 ---
Surgeon's Initial Post Op Note - Surgeon's Notes Surgeon: Dr. Graham Continuity Tester: Inna Witt PGY2 Type of Anesthesia: General Endo Anesthesia Administered By: [place]/Mariaelena Pre-Operative Diagnosis: Acute cholecystitis, Choledolcholithiasis Operative Findings: Acute cholecystitis, liver cirrhosis, omental inflammation/adhesions to liver and gallbladder Post-Operative Diagnosis: Acute cholecystitis, Choledolcholithiasis Operation Performed: Laparoscopic cholecystectomy Specimen/Specimens Removed: Gallbladder Estimated Blood Loss: EBL {In ML}: 75 Blood Products Given: N/A Drains Used: Domingo (15fr) Post-Op Condition: Good Date of Surgery/Procedure: 09/08/18 Time of Surgery/Procedure: 11:53
[2018-09-08] MEDS: Morphine 5 MG/ML SYRINGE IVP PRN ×2 (14:35→20:57)
--- NOTE | 2018-09-08 22:03 | OP ---
PROCEDURE DATE: 09/08/2018 PREOPERATIVE DIAGNOSIS: Choledocholithiasis. POSTOPERATIVE DIAGNOSIS: Choledocholithiasis, acute cholecystitis. PROCEDURE: Laparoscopic cholecystectomy. SURGEON: Channing Graham MD AIR TWISTER WINDER: Giovani Dewitt MD ANESTHESIA: General. FINDINGS: The patient had a severely inflamed gallbladder with omentum matted down to the gallbladder. ESTIMATED BLOOD LOSS: 100 mL. COMPLICATIONS: None. SPECIMEN: Gallbladder. CONDITION: Stable. BRIEF DESCRIPTION: This is a 53-year-old male, who presented with worsening epigastric right upper quadrant pain. Of note, the patient has a chronic history of opiate abuse. On admission, the patient was found to have an elevated bilirubin along with LFTs. The patient had an initial CAT scan done, which showed dilated biliary tree. Due to a previous history of deep compounds in his vein, the patient was unable to get an MRCP. So, the patient underwent an ERCP. On ERCP, a intact CBD stone was found, which was retrieved. Post the ERCP, the patient had LFTs and bilirubin normalized. The patient was then preoped for a laparoscopic cholecystectomy. The patient was explained the risks and benefits of the procedure, not limited to bleeding, infection, possible abscess formation, possible damage to the biliary tree and other surrounding structures. The patient agreed and surgical consent was obtained. DESCRIPTION OF PROCEDURE: On the date of procedure, the patient was brought to the operating room. Bilateral sequential devices were placed to the lower extremities. The patient was then placed under general endotracheal anesthesia, which he tolerated well. The patient was then prepped and draped in the usual sterile fashion. No further preoperative prophylactic antibiotics were given as the patient was already on antibiotics. After an adequate time-out, a Veress needle was placed into the intra-abdominal cavity. The intraabdominal cavity was then insufflated through the Veress needle to 13 mmHg, which the patient tolerated well. Of note, there were good opening pressures on initial insufflation. After the abdominal cavity was insufflated, we proceeded to make a 1-cm umbilical incision up to the supraumbilical area. We then placed an 11-mm port into the abdominal cavity. We then placed a 5-mm laparoscope into the abdominal cavity and a diagnostic laparoscopy was performed. No gross pathology was found. We then proceeded to place three additional 5-mm ports all under direct visualization, one to the subxiphoid area and one to the right abdomen. At this point, we proceeded to begin our initial dissection. Of note, there was significant inflammation to the gallbladder and to the liver area. The omentum was grossly matted down to the gallbladder. We then proceeded with a combination of blunt along with help of hook cautery and a suction drain to bluntly mobilize the omentum off the gallbladder. Of note, during this resection, there was significant inflammation and omentum to the gallbladder. We were finally able to dissect off most of the omentum off the gallbladder. At this point, we were able to identify the cystic duct, which was clipped with 5-mm clips and then transected and then the cystic artery was subsequently identified, clipped, and also transected. At this point, due to the significant amount of inflammation to the liver fossa, we were able to remove the gallbladder with ease. Once the gallbladder was off the liver bed, we placed an Endo catch bag. We then proceeded to copiously irrigate the right upper quadrant and liver fossa with copious amounts of irrigation. All the irrigation was suctioned off. The liver bed was once again inspected, no gross amount of oozing from the liver bed itself. At this point, we were satisfied with the procedure, we proceeded to remove the gallbladder from the umbilical port site under direct visualization. We then placed a 15 [place] Domingo drain to the liver gallbladder fossa area. At this point, the drain was sutured to the skin using a 2-0 silk suture. We once again inspected the liver bed and suctioned any remaining irrigation. Once we were satisfied, we proceeded to terminate the procedure. The abdominal cavity was desufflated of all CO2. The supraumbilical port site was reapproximated using an 0 Vicryl stitch. Then, all the port sites were closed using 4-0 Monocryl stitch. The patient tolerated the procedure well. He was extubated without any complication. He was brought to the recovery room in stable condition. At the end of the procedure, there was an adequate count to all instruments, sponges, and needles. Channing Graham MD [facility] # [id number]
[2018-09-09] MEDS: Gentamicin 80mg/50ml NS 80 MG/50 ML BAG IVPB SCH ×3 (00:19→16:53)
[2018-09-09] MEDS: Piperacillin/Tazobact 3.375 GM in Sodium Chloride 0.9% 100 ML IVPB SCH ×4 (05:00→21:30)
[2018-09-09] MEDS: Morphine 5 MG/ML SYRINGE IVP PRN (05:04)
[2018-09-09] MEDS: Lactated Ringer's 1,000 ML IV SCH (05:04)
[2018-09-09 07:14] LABS: ALB/GLOB RATIO 0.8 (1.0-2.1); ALBUMIN 3.6 g/dL (3.5-5.0); ALT/SGPT 36 U/L (21-72); AST/SGOT 41 U/L (17-59); BLOOD UREA NITROGEN 14 mg/dl (9-20); CALCIUM 8.9 mg/dL (8.4-10.2); GFR NON-AFRICAN AMERICAN > 60
[2018-09-09 07:51] LABS: BASO % 0.1 % (0.0-2.0); EOS # 0.1 K/uL (0.0-0.7); EOS % 1.2 % (0.0-4.0); HEMOGLOBIN 11.1 g/dL (12.0-18.0); LYMPH # 1.2 K/uL (1.0-4.3); LYMPH % 14.9 % (20.0-40.0); MEAN CELL VOLUME 90.1 fl (80.0-94.0); MEAN CORPUSCULAR HEMOGLOBIN 29.9 pg (27.0-31.0); MEAN CORPUSCULAR HGB CONC 33.2 g/dL (33.0-37.0); MEAN PLATELET VOLUME 7.7 fl (7.2-11.7); MONO # 0.7 K/uL (0.0-0.8); MONO % 9.2 % (0.0-10.0); NEUT # 5.8 K/uL (1.8-7.0); NEUT % 74.6 % (50.0-75.0); NRBC % 0.1 % (0.0-0.0); RBC 3.71 Mil/uL (4.40-5.90); WHITE BLOOD COUNT 7.8 K/uL (4.8-10.8)
[2018-09-09] MEDS: buPROPion SR 150 MG TABLET PO SCH (08:55)
--- NOTE | 2018-09-09 09:55 | CP.PCM.PN ---
Subjective - Date & Time of Evaluation Date of Evaluation: 09/09/18 Time of Evaluation: 09:54 - Subjective Subjective: no overnight events Objective - Vital Signs/Intake and Output Vital Signs (last 24 hours): Temp Pulse Resp BP Pulse Ox 97.7 F 65 20 129/81 96 09/09/18 08:27 09/09/18 08:27 09/09/18 08:27 09/09/18 08:27 09/09/18 08:27 Intake and Output: 09/09/18 09/09/18 06:59 18:59 Output Total 60 Balance -60 - Medications Medications: Current Medications Bupropion HCl (Wellbutrin Sr 150 Mg) 150 mg PO DAILY [facility] Last Admin: 09/09/18 08:55 Dose: 150 mg Docusate Sodium (Colace) 100 mg PO BID [facility] Last Admin: 09/09/18 08:55 Dose: 100 mg Enoxaparin Sodium (Lovenox) 40 mg SC DAILY [facility]; Protocol Gabapentin (Neurontin) 200 mg PO Q8 [facility] Last Admin: 09/09/18 08:54 Dose: 200 mg Hydromorphone HCl (Dilaudid) 0.5 mg IVP Q10M PRN PRN Reason: Pain, moderate (4-7) Gentamicin Sulfate/Sodium Chloride (Gentamicin 80mg/50ml Ns) 80 mg in 50 mls @ 50 mls/hr IVPB Q8 [facility]; Protocol Last Admin: 09/09/18 08:55 Dose: 50 mls/hr Piperacillin Sod/Tazobactam (Sod 3.375 gm/ Sodium Chloride) 100 mls @ 100 mls/hr IVPB Q6 [facility]; Protocol Last Admin: 09/09/18 05:00 Dose: 100 mls/hr Methadone HCl (Methadone) 80 mg PO DAILY [facility] Last Admin: 09/09/18 09:05 Dose: 80 mg Mirtazapine (Remeron) 45 mg PO HS [facility] Last Admin: 09/08/18 20:59 Dose: 45 mg Morphine Sulfate (Morphine) 2 mg IVP Q4 PRN PRN Reason: Pain, moderate (4-7) Last Admin: 09/05/18 00:54 Dose: 2 mg Ondansetron HCl (Zofran Inj) 4 mg IVP Q4 PRN PRN Reason: Nausea/Vomiting Last Admin: 09/03/18 12:35 Dose: 4 mg - Labs Labs: 09/09/18 06:40 09/09/18 06:40 PT 12.5 Seconds (9.8-13.1) 09/08/18 07:55 INR 1.1 09/08/18 07:55 APTT 31.7 Seconds (25.6-37.1) 09/08/18 07:55 - Neck Exam Neck Exam: Normal Inspection - Respiratory Exam Respiratory Exam: Clear to Ausculation Bilateral, NORMAL BREATHING PATTERN - Cardiovascular Exam Cardiovascular Exam: REGULAR RHYTHM - GI/Abdominal Exam GI & Abdominal Exam: Soft, Normal Bowel Sounds Assessment and Plan - Assessment and Plan (Free Text) Assessment: 53 yo male with cbd stones doing well post op dc planning once able
--- NOTE | 2018-09-09 10:03 | CP.PCM.PN ---
<Jamie Moyer - Last Filed: 09/09/18 09:58> Subjective - Date & Time of Evaluation Date of Evaluation: 09/09/18 Time of Evaluation: 07:00 - Subjective Subjective: General Surgery progress Note for Dr. Graham This 53M was seen and evaluated this Am at bedside no acute events overnight. Tolerating diet passing gas no BM. Denies fevers chills chest pain SOB nausea or vomiting. Drain output 160 since OR 60cc serosanguinous over past 12 hours. Objective - Vital Signs/Intake and Output Vital Signs (last 24 hours): Temp Pulse Resp BP Pulse Ox 97.7 F 65 20 129/81 96 09/09/18 08:27 09/09/18 08:27 09/09/18 08:27 09/09/18 08:27 09/09/18 08:27 Intake and Output: 09/09/18 09/09/18 06:59 18:59 Output Total 60 Balance -60 - Medications Medications: Current Medications Bupropion HCl (Wellbutrin Sr 150 Mg) 150 mg PO DAILY [facility] Last Admin: 09/09/18 08:55 Dose: 150 mg Docusate Sodium (Colace) 100 mg PO BID [facility] Last Admin: 09/09/18 08:55 Dose: 100 mg Enoxaparin Sodium (Lovenox) 40 mg SC DAILY [facility]; Protocol Gabapentin (Neurontin) 200 mg PO Q8 [facility] Last Admin: 09/09/18 08:54 Dose: 200 mg Hydromorphone HCl (Dilaudid) 0.5 mg IVP Q10M PRN PRN Reason: Pain, moderate (4-7) Gentamicin Sulfate/Sodium Chloride (Gentamicin 80mg/50ml Ns) 80 mg in 50 mls @ 50 mls/hr IVPB Q8 [facility]; Protocol Last Admin: 09/09/18 08:55 Dose: 50 mls/hr Piperacillin Sod/Tazobactam (Sod 3.375 gm/ Sodium Chloride) 100 mls @ 100 mls/hr IVPB Q6 [facility]; Protocol Last Admin: 09/09/18 05:00 Dose: 100 mls/hr Methadone HCl (Methadone) 80 mg PO DAILY [facility] Last Admin: 09/09/18 09:05 Dose: 80 mg Mirtazapine (Remeron) 45 mg PO HS [facility] Last Admin: 09/08/18 20:59 Dose: 45 mg Morphine Sulfate (Morphine) 2 mg IVP Q4 PRN PRN Reason: Pain, moderate (4-7) Last Admin: 09/05/18 00:54 Dose: 2 mg Ondansetron HCl (Zofran Inj) 4 mg IVP Q4 PRN PRN Reason: Nausea/Vomiting Last Admin: 09/03/18 12:35 Dose: 4 mg - Labs Labs: 09/09/18 06:40 09/09/18 06:40 PT 12.5 Seconds (9.8-13.1) 09/08/18 07:55 INR 1.1 09/08/18 07:55 APTT 31.7 Seconds (25.6-37.1) 09/08/18 07:55 - Constitutional Appears: Non-toxic, No Acute Distress - Head Exam Head Exam: ATRAUMATIC, NORMOCEPHALIC - Eye Exam Eye Exam: EOMI - ENT Exam ENT Exam: Mucous Membranes Moist - Respiratory Exam Respiratory Exam: NORMAL BREATHING PATTERN - Cardiovascular Exam Cardiovascular Exam: REGULAR RHYTHM - GI/Abdominal Exam GI & Abdominal Exam: Soft. absent: Firm, Guarding, Rigid, Tenderness Additional comments: Inscisions well aproximated non tender non erythematous - Neurological Exam Neurological Exam: Alert, Awake - Psychiatric Exam Psychiatric exam: Normal Affect, Normal Mood - Skin Skin Exam: Dry, Intact Assessment and Plan - Assessment and Plan (Free Text) Assessment: 53M pod1 s/p lap diego for chronic cholecystitis and doing well Clear for discharge home from surgical perspective Follow Up in office next saturday Recommend PO Augmentin for 1 week D/W Dr. Santos Moyer PGY3 <Channing Graham - Last Filed: 09/09/18 10:35> Objective - Vital Signs/Intake and Output Vital Signs (last 24 hours): Temp Pulse Resp BP Pulse Ox 97.7 F 65 20 129/81 96 09/09/18 08:27 09/09/18 08:27 09/09/18 08:27 09/09/18 08:27 09/09/18 08:27 Intake and Output: 09/09/18 09/09/18 06:59 18:59 Output Total 60 Balance -60 - Medications Medications: Current Medications Bupropion HCl (Wellbutrin Sr 150 Mg) 150 mg PO DAILY [facility] Last Admin: 09/09/18 08:55 Dose: 150 mg Docusate Sodium (Colace) 100 mg PO BID [facility] Last Admin: 09/09/18 08:55 Dose: 100 mg Enoxaparin Sodium (Lovenox) 40 mg SC DAILY [facility]; Protocol Gabapentin (Neurontin) 200 mg PO Q8 [facility] Last Admin: 09/09/18 08:54 Dose: 200 mg Hydromorphone HCl (Dilaudid) 0.5 mg IVP Q10M PRN PRN Reason: Pain, moderate (4-7) Gentamicin Sulfate/Sodium Chloride (Gentamicin 80mg/50ml Ns) 80 mg in 50 mls @ 50 mls/hr IVPB Q8 [facility]; Protocol Last Admin: 09/09/18 08:55 Dose: 50 mls/hr Piperacillin Sod/Tazobactam (Sod 3.375 gm/ Sodium Chloride) 100 mls @ 100 mls/hr IVPB Q6 [facility]; Protocol Last Admin: 09/09/18 05:00 Dose: 100 mls/hr Methadone HCl (Methadone) 80 mg PO DAILY [facility] Last Admin: 09/09/18 09:05 Dose: 80 mg Mirtazapine (Remeron) 45 mg PO HS [facility] Last Admin: 09/08/18 20:59 Dose: 45 mg Morphine Sulfate (Morphine) 2 mg IVP Q4 PRN PRN Reason: Pain, moderate (4-7) Last Admin: 09/05/18 00:54 Dose: 2 mg Ondansetron HCl (Zofran Inj) 4 mg IVP Q4 PRN PRN Reason: Nausea/Vomiting Last Admin: 09/03/18 12:35 Dose: 4 mg - Labs Labs: 09/09/18 06:40 09/09/18 06:40 PT 12.5 Seconds (9.8-13.1) 09/08/18 07:55 INR 1.1 09/08/18 07:55 APTT 31.7 Seconds (25.6-37.1) 09/08/18 07:55 Assessment and Plan - Assessment and Plan (Free Text) Plan: no overnight events. Pt tolerating diet, no nausea or vomiting. SHAYY In place with serosanguinous drainage. gen: awake, alert, NAD HEENT: nc/at, no scleral icterus abd: soft, obese, minimal incisional tenderness, SHAYY drain in place a/p prn pain control low fat diet stable for dc with Po abx f/u in office on 09/15 for drain removal
--- NOTE | 2018-09-09 13:35 | CP.PCM.PN ---
Subjective - Date & Time of Evaluation Date of Evaluation: 09/09/18 Time of Evaluation: 12:40 - Subjective Subjective: F/U Abdominal pain. Pt awake, s/p lap Jonas yesterday, no c/o of abdominal pain. Objective - Vital Signs/Intake and Output Vital Signs (last 24 hours): Temp Pulse Resp BP Pulse Ox 97.7 F 65 20 129/81 96 09/09/18 08:27 09/09/18 08:27 09/09/18 08:27 09/09/18 08:27 09/09/18 08:27 Intake and Output: 09/09/18 09/09/18 06:59 18:59 Output Total 60 Balance -60 - Medications Medications: Current Medications Bupropion HCl (Wellbutrin Sr 150 Mg) 150 mg PO DAILY [facility] Last Admin: 09/09/18 08:55 Dose: 150 mg Docusate Sodium (Colace) 100 mg PO BID [facility] Last Admin: 09/09/18 08:55 Dose: 100 mg Enoxaparin Sodium (Lovenox) 40 mg SC DAILY [facility]; Protocol Gabapentin (Neurontin) 200 mg PO Q8 [facility] Last Admin: 09/09/18 08:54 Dose: 200 mg Hydromorphone HCl (Dilaudid) 0.5 mg IVP Q10M PRN PRN Reason: Pain, moderate (4-7) Gentamicin Sulfate/Sodium Chloride (Gentamicin 80mg/50ml Ns) 80 mg in 50 mls @ 50 mls/hr IVPB Q8 [facility]; Protocol Last Admin: 09/09/18 08:55 Dose: 50 mls/hr Piperacillin Sod/Tazobactam (Sod 3.375 gm/ Sodium Chloride) 100 mls @ 100 mls/hr IVPB Q6 [facility]; Protocol Last Admin: 09/09/18 05:00 Dose: 100 mls/hr Methadone HCl (Methadone) 80 mg PO DAILY [facility] Last Admin: 09/09/18 09:05 Dose: 80 mg Mirtazapine (Remeron) 45 mg PO HS [facility] Last Admin: 09/08/18 20:59 Dose: 45 mg Morphine Sulfate (Morphine) 2 mg IVP Q4 PRN PRN Reason: Pain, moderate (4-7) Last Admin: 09/05/18 00:54 Dose: 2 mg Ondansetron HCl (Zofran Inj) 4 mg IVP Q4 PRN PRN Reason: Nausea/Vomiting Last Admin: 09/03/18 12:35 Dose: 4 mg - Labs Labs: 09/09/18 06:40 09/09/18 06:40 PT 12.5 Seconds (9.8-13.1) 09/08/18 07:55 INR 1.1 09/08/18 07:55 APTT 31.7 Seconds (25.6-37.1) 09/08/18 07:55 - Constitutional Appears: No Acute Distress - Head Exam Head Exam: NORMAL INSPECTION - Eye Exam Eye Exam: PERRL - ENT Exam ENT Exam: Normal Exam - Neck Exam Neck Exam: Normal Inspection - Respiratory Exam Respiratory Exam: NORMAL BREATHING PATTERN - Cardiovascular Exam Cardiovascular Exam: REGULAR RHYTHM - GI/Abdominal Exam GI & Abdominal Exam: Soft, Tenderness (minimal surgical site.), Normal Bowel Sounds Additional comments: SHAYY in place, draining bloody fluid. - Extremities Exam Extremities Exam: Normal Inspection - Back Exam Back Exam: NORMAL INSPECTION - Neurological Exam Neurological Exam: Alert, Awake, Oriented x3 Additional comments: No focal motor/sensory deficit - Psychiatric Exam Psychiatric exam: Normal Mood - Skin Skin Exam: Warm Assessment and Plan (1) Abdominal pain Status: Acute (2) Elevated liver enzymes Status: Acute (3) Common bile duct dilatation Status: Acute (4) Bacteremia due to Gram-negative bacteria Status: Acute (5) Hepatic steatosis Status: Acute (6) Hepatitis C Status: Chronic (7) Alcohol abuse Status: Chronic (8) Opiate abuse, continuous Status: Chronic (9) S/P ERCP Status: Acute - Assessment and Plan (Free Text) Plan: Blood C-S, continue Genta, Zosyn, Morphine, Methadone and rest of Tx.
[2018-09-09] MEDS: Morphine 4 MG/ML VIAL IVP PRN (15:31)
[2018-09-10] MEDS: Gentamicin 80mg/50ml NS 80 MG/50 ML BAG IVPB SCH ×3 (01:11→17:29)
[2018-09-10] MEDS: Piperacillin/Tazobact 3.375 GM in Sodium Chloride 0.9% 100 ML IVPB SCH ×4 (04:31→21:34)
[2018-09-10 07:15] LABS: HEMOGLOBIN 11.2 g/dL (12.0-18.0); MEAN CELL VOLUME 91.1 fl (80.0-94.0); MEAN CORPUSCULAR HEMOGLOBIN 30.5 pg (27.0-31.0); MEAN CORPUSCULAR HGB CONC 33.5 g/dL (33.0-37.0); RBC 3.68 Mil/uL (4.40-5.90); RED CELL DISTRIBUTION WIDTH 14.1 % (11.5-14.5); WHITE BLOOD COUNT 6.5 K/uL (4.8-10.8)
[2018-09-10 07:44] LABS: ALB/GLOB RATIO 0.8 (1.0-2.1); ALBUMIN 3.4 g/dL (3.5-5.0); ALT/SGPT 32 U/L (21-72); AST/SGOT 22 U/L (17-59); BLOOD UREA NITROGEN 15 mg/dl (9-20); CALCIUM 9.2 mg/dL (8.4-10.2); GFR NON-AFRICAN AMERICAN > 60
--- NOTE | 2018-09-10 09:38 | CP.PCM.PN ---
Subjective - Date & Time of Evaluation Date of Evaluation: 09/10/18 Time of Evaluation: 09:37 - Subjective Subjective: seen at bedside, no overnight events. Pt tolerating diet, no nausea or vomiting. SHAYY in place 180cc/24hrs. gen: awake, alert, NAD HEENT: NC/AT, EOMI, PERRLA, -scleral icterus no acute respiratory distress abd: soft, obese, lap port incisions c/d/l, SHAYY drain to Right abdomen with sersanguinous drainage ext: no calf tenderness a/p lap diego - chronic cholecystitis -cont prn pain control -diet as tolerated -cont IV abx -monitor drain output -SHAYY drain will be dc in office Objective - Vital Signs/Intake and Output Vital Signs (last 24 hours): Temp Pulse Resp BP Pulse Ox 98.9 F 90 20 103/64 92 L 09/10/18 08:37 09/10/18 08:37 09/10/18 08:37 09/10/18 08:37 09/10/18 08:37 - Medications Medications: Current Medications Bupropion HCl (Wellbutrin Sr 150 Mg) 150 mg PO DAILY [facility] Last Admin: 09/09/18 08:55 Dose: 150 mg Docusate Sodium (Colace) 100 mg PO BID [facility] Last Admin: 09/09/18 16:54 Dose: 100 mg Enoxaparin Sodium (Lovenox) 40 mg SC DAILY [facility]; Protocol Last Admin: 09/08/18 10:00 Dose: Not Given Gabapentin (Neurontin) 200 mg PO Q8 [facility] Last Admin: 09/10/18 01:11 Dose: 200 mg Hydromorphone HCl (Dilaudid) 0.5 mg IVP Q10M PRN PRN Reason: Pain, moderate (4-7) Gentamicin Sulfate/Sodium Chloride (Gentamicin 80mg/50ml Ns) 80 mg in 50 mls @ 50 mls/hr IVPB Q8 [facility]; Protocol Last Admin: 09/10/18 01:11 Dose: 50 mls/hr Piperacillin Sod/Tazobactam (Sod 3.375 gm/ Sodium Chloride) 100 mls @ 100 mls/hr IVPB Q6 [facility]; Protocol Last Admin: 09/10/18 04:31 Dose: 100 mls/hr Methadone HCl (Methadone) 80 mg PO DAILY [facility] Last Admin: 09/09/18 09:05 Dose: 80 mg Mirtazapine (Remeron) 45 mg PO HS [facility] Last Admin: 09/09/18 21:29 Dose: 45 mg Morphine Sulfate (Morphine) 2 mg IVP Q4 PRN PRN Reason: Pain, moderate (4-7) Last Admin: 09/09/18 15:31 Dose: 2 mg Ondansetron HCl (Zofran Inj) 4 mg IVP Q4 PRN PRN Reason: Nausea/Vomiting Last Admin: 09/03/18 12:35 Dose: 4 mg - Labs Labs: 09/10/18 06:55 09/10/18 06:55 PT 12.5 Seconds (9.8-13.1) 09/08/18 07:55 INR 1.1 09/08/18 07:55 APTT 31.7 Seconds (25.6-37.1) 09/08/18 07:55
[2018-09-10] MEDS: buPROPion SR 150 MG TABLET PO SCH (11:04)
[2018-09-10] MEDS ORDERED: Albuterol-Ipratrop 3 mg / 0.5 (3 ml) UD INH PRN (13:48)
[2018-09-10] MEDS ORDERED: Promethazine/Cod 6.25mg-10mg/5ml Syr UD PO PRN (13:49)
[2018-09-10] MEDS: Albuterol-Ipratrop 3 mg / 0.5 (3 ml) UD INH SCH ×2 (14:00→19:53)
--- NOTE | 2018-09-10 15:13 | CP.PCM.PN ---
Subjective - Date & Time of Evaluation Date of Evaluation: 09/10/18 Time of Evaluation: 12:00 - Subjective Subjective: F/U Abdominal pain. No abdominal pain, c/o of cough with yellowish phlegms. Objective - Vital Signs/Intake and Output Vital Signs (last 24 hours): Temp Pulse Resp BP Pulse Ox 98.9 F 90 20 103/64 92 L 09/10/18 08:37 09/10/18 08:37 09/10/18 08:37 09/10/18 08:37 09/10/18 08:37 - Medications Medications: Current Medications Albuterol/Ipratropium (Duoneb 3 Mg/0.5 Mg (3 Ml) Ud) 3 ml INH RQ6 [facility] Budesonide (Pulmicort Respules) 0.25 mg INH RBID [facility] Bupropion HCl (Wellbutrin Sr 150 Mg) 150 mg PO DAILY [facility] Last Admin: 09/10/18 11:04 Dose: 150 mg Docusate Sodium (Colace) 100 mg PO BID [facility] Last Admin: 09/10/18 11:01 Dose: 100 mg Enoxaparin Sodium (Lovenox) 40 mg SC DAILY [facility]; Protocol Last Admin: 09/08/18 10:00 Dose: Not Given Gabapentin (Neurontin) 200 mg PO Q8 [facility] Last Admin: 09/10/18 11:03 Dose: 200 mg Hydromorphone HCl (Dilaudid) 0.5 mg IVP Q10M PRN PRN Reason: Pain, moderate (4-7) Gentamicin Sulfate/Sodium Chloride (Gentamicin 80mg/50ml Ns) 80 mg in 50 mls @ 50 mls/hr IVPB Q8 [facility]; Protocol Last Admin: 09/10/18 11:02 Dose: 50 mls/hr Piperacillin Sod/Tazobactam (Sod 3.375 gm/ Sodium Chloride) 100 mls @ 100 mls/hr IVPB Q6 [facility]; Protocol Last Admin: 09/10/18 11:04 Dose: 100 mls/hr Methadone HCl (Methadone) 80 mg PO DAILY [facility] Last Admin: 09/10/18 11:17 Dose: 80 mg Mirtazapine (Remeron) 45 mg PO HS [facility] Last Admin: 09/09/18 21:29 Dose: 45 mg Morphine Sulfate (Morphine) 2 mg IVP Q4 PRN PRN Reason: Pain, moderate (4-7) Last Admin: 09/09/18 15:31 Dose: 2 mg Ondansetron HCl (Zofran Inj) 4 mg IVP Q4 PRN PRN Reason: Nausea/Vomiting Last Admin: 09/03/18 12:35 Dose: 4 mg Promethazine HCl/Codeine (Phenergan/Codeine Oral Syrup) 10 ml PO Q6 PRN PRN Reason: Cough - Labs Labs: 09/10/18 06:55 09/10/18 06:55 PT 12.5 Seconds (9.8-13.1) 09/08/18 07:55 INR 1.1 09/08/18 07:55 APTT 31.7 Seconds (25.6-37.1) 09/08/18 07:55 - Constitutional Appears: No Acute Distress - Head Exam Head Exam: NORMAL INSPECTION - Eye Exam Eye Exam: PERRL - ENT Exam ENT Exam: Normal Exam - Neck Exam Neck Exam: Normal Inspection - Respiratory Exam Respiratory Exam: Decreased Breath Sounds (at bases), Rhonchi (scattered b/l), Wheezes - Cardiovascular Exam Cardiovascular Exam: REGULAR RHYTHM - GI/Abdominal Exam GI & Abdominal Exam: Soft, Tenderness (minimal surgical site), Normal Bowel Sounds Additional comments: SHAYY in place - Extremities Exam Additional comments: BLE edema, varicose veins. - Back Exam Back Exam: NORMAL INSPECTION - Neurological Exam Neurological Exam: Alert, Awake, Oriented x3. absent: Motor Sensory Deficit - Psychiatric Exam Psychiatric exam: Normal Mood - Skin Skin Exam: Warm Assessment and Plan (1) COPD exacerbation Status: Acute (2) Abdominal pain Status: Acute (3) Elevated liver enzymes Status: Acute (4) Common bile duct dilatation Status: Acute (5) Bacteremia due to Gram-negative bacteria Status: Acute (6) Hepatic steatosis Status: Acute (7) Hepatitis C Status: Chronic (8) Alcohol abuse Status: Chronic (9) Opiate abuse, continuous Status: Chronic (10) S/P ERCP Status: Acute - Assessment and Plan (Free Text) Plan: CXR, Sputum C-S, start Duoneb, Pulmicort, Phenergan with Co, Sodium Chl, contin ue Zosyn, Gentamycin and rest of tx.
[2018-09-10] MEDS: Budesonide 0.25 mg/2 ml Inhal Susp UD INH SCH (19:53)
[2018-09-10] MEDS ORDERED: Sodium Chloride 3% for Inhalation 4 ML VIAL.NEB IH PRN (20:17)
[2018-09-11 00:13] VITALS: PULSE 79; RESP 20
[2018-09-11] MEDS: Gentamicin 80mg/50ml NS 80 MG/50 ML BAG IVPB SCH ×2 (00:29→10:02)
[2018-09-11] MEDS: Albuterol-Ipratrop 3 mg / 0.5 (3 ml) UD INH SCH ×3 (02:34→13:09)
[2018-09-11] MEDS: Piperacillin/Tazobact 3.375 GM in Sodium Chloride 0.9% 100 ML IVPB SCH ×2 (04:32→10:01)
[2018-09-11] MEDS: Morphine 4 MG/ML VIAL IVP PRN (04:45)
--- NOTE | 2018-09-11 07:42 | CP.PCM.PN ---
<Faustina Zhognregina - Last Filed: 09/11/18 07:39> Subjective - Date & Time of Evaluation Date of Evaluation: 09/11/18 Time of Evaluation: 07:39 - Subjective Subjective: General Surgery progress Note for Dr. Graham 53 y/o female patient seen and evaluated this AM at bedside no acute events overnight. Patient resting comfortably, and denies fever, nausea, vomiting and chills. Patient aware he is being discharged today. Patient aware he is to follow up with Dr. Graham outpatient. SHAYY drain in place, output Objective - Vital Signs/Intake and Output Vital Signs (last 24 hours): Temp Pulse Resp BP Pulse Ox 97.8 F 79 20 122/74 96 09/11/18 00:13 09/11/18 00:13 09/11/18 00:13 09/11/18 00:13 09/11/18 00:13 - Medications Medications: Current Medications Albuterol/Ipratropium (Duoneb 3 Mg/0.5 Mg (3 Ml) Ud) 3 ml INH RQ6 [facility] Last Admin: 09/11/18 02:34 Dose: 3 ml Budesonide (Pulmicort Respules) 0.25 mg INH RBID [facility] Last Admin: 09/10/18 19:53 Dose: 0.25 mg Bupropion HCl (Wellbutrin Sr 150 Mg) 150 mg PO DAILY [facility] Last Admin: 09/10/18 11:04 Dose: 150 mg Docusate Sodium (Colace) 100 mg PO BID [facility] Last Admin: 09/10/18 17:25 Dose: 100 mg Enoxaparin Sodium (Lovenox) 40 mg SC DAILY [facility]; Protocol Last Admin: 09/08/18 10:00 Dose: Not Given Gabapentin (Neurontin) 200 mg PO Q8 [facility] Last Admin: 09/11/18 00:30 Dose: 200 mg Hydromorphone HCl (Dilaudid) 0.5 mg IVP Q10M PRN PRN Reason: Pain, moderate (4-7) Gentamicin Sulfate/Sodium Chloride (Gentamicin 80mg/50ml Ns) 80 mg in 50 mls @ 50 mls/hr IVPB Q8 [facility]; Protocol Last Admin: 09/11/18 00:29 Dose: 50 mls/hr Piperacillin Sod/Tazobactam (Sod 3.375 gm/ Sodium Chloride) 100 mls @ 100 mls/hr IVPB Q6 [facility]; Protocol Last Admin: 09/11/18 04:32 Dose: 100 mls/hr Methadone HCl (Methadone) 80 mg PO DAILY [facility] Last Admin: 09/10/18 11:17 Dose: 80 mg Mirtazapine (Remeron) 45 mg PO HS [facility] Last Admin: 09/10/18 21:34 Dose: 45 mg Morphine Sulfate (Morphine) 2 mg IVP Q4 PRN PRN Reason: Pain, moderate (4-7) Last Admin: 09/11/18 04:45 Dose: 2 mg Ondansetron HCl (Zofran Inj) 4 mg IVP Q4 PRN PRN Reason: Nausea/Vomiting Last Admin: 09/03/18 12:35 Dose: 4 mg Promethazine HCl/Codeine (Phenergan/Codeine Oral Syrup) 10 ml PO Q6 PRN PRN Reason: Cough - Labs Labs: 09/10/18 06:55 09/10/18 06:55 PT 12.5 Seconds (9.8-13.1) 09/08/18 07:55 INR 1.1 09/08/18 07:55 APTT 31.7 Seconds (25.6-37.1) 09/08/18 07:55 - Constitutional Appears: Well, Non-toxic, No Acute Distress - Head Exam Head Exam: NORMAL INSPECTION - Eye Exam Eye Exam: Normal appearance - ENT Exam ENT Exam: Mucous Membranes Moist - Respiratory Exam Respiratory Exam: absent: Accessory Muscle Use, Respiratory Distress - Cardiovascular Exam Cardiovascular Exam: REGULAR RHYTHM, +S1, +S2 - GI/Abdominal Exam GI & Abdominal Exam: Soft Additional comments: abd: soft, obese, lap port incisions c/d/l, SHAYY drain to Right abdomen with sersanguinous drainage - Neurological Exam Neurological Exam: Alert, Awake, Oriented x3 - Psychiatric Exam Psychiatric exam: Normal Affect, Normal Mood Assessment and Plan - Assessment and Plan (Free Text) Assessment: 53 y/o male POD3 s/p lap [place]go for chronic cholecystitis, patient doing well Plan: Clear for discharge home from surgical perspective Follow Up in office next Saturday- SHAYY drain will be dc in office Continue PRN pain control Diet as tolerated Recommend PO Augmentin for 1 week Case discussed with Dr. Santos Zhong PGY1 <Channing Graham - Last Filed: 09/11/18 09:43> Objective - Vital Signs/Intake and Output Vital Signs (last 24 hours): Temp Pulse Resp BP Pulse Ox 98 F 79 20 133/79 91 L 09/11/18 08:17 09/11/18 08:17 09/11/18 08:17 09/11/18 08:17 09/11/18 08:17 - Medications Medications: Current Medications Albuterol/Ipratropium (Duoneb 3 Mg/0.5 Mg (3 Ml) Ud) 3 ml INH RQ6 [facility] Last Admin: 09/11/18 07:46 Dose: 3 ml Budesonide (Pulmicort Respules) 0.25 mg INH RBID [facility] Last Admin: 09/11/18 07:46 Dose: 0.25 mg Bupropion HCl (Wellbutrin Sr 150 Mg) 150 mg PO DAILY [facility] Last Admin: 09/10/18 11:04 Dose: 150 mg Docusate Sodium (Colace) 100 mg PO BID [facility] Last Admin: 09/10/18 17:25 Dose: 100 mg Enoxaparin Sodium (Lovenox) 40 mg SC DAILY [facility]; Protocol Last Admin: 09/08/18 10:00 Dose: Not Given Gabapentin (Neurontin) 200 mg PO Q8 [facility] Last Admin: 09/11/18 00:30 Dose: 200 mg Hydromorphone HCl (Dilaudid) 0.5 mg IVP Q10M PRN PRN Reason: Pain, moderate (4-7) Gentamicin Sulfate/Sodium Chloride (Gentamicin 80mg/50ml Ns) 80 mg in 50 mls @ 50 mls/hr IVPB Q8 [facility]; Protocol Last Admin: 09/11/18 00:29 Dose: 50 mls/hr Piperacillin Sod/Tazobactam (Sod 3.375 gm/ Sodium Chloride) 100 mls @ 100 mls/hr IVPB Q6 [facility]; Protocol Last Admin: 09/11/18 04:32 Dose: 100 mls/hr Methadone HCl (Methadone) 80 mg PO DAILY [facility] Last Admin: 09/10/18 11:17 Dose: 80 mg Mirtazapine (Remeron) 45 mg PO HS [facility] Last Admin: 09/10/18 21:34 Dose: 45 mg Morphine Sulfate (Morphine) 2 mg IVP Q4 PRN PRN Reason: Pain, moderate (4-7) Last Admin: 09/11/18 04:45 Dose: 2 mg Ondansetron HCl (Zofran Inj) 4 mg IVP Q4 PRN PRN Reason: Nausea/Vomiting Last Admin: 09/03/18 12:35 Dose: 4 mg Promethazine HCl/Codeine (Phenergan/Codeine Oral Syrup) 10 ml PO Q6 PRN PRN Reason: Cough - Labs Labs: 09/10/18 06:55 09/10/18 06:55 PT 12.5 Seconds (9.8-13.1) 09/08/18 07:55 INR 1.1 09/08/18 07:55 APTT 31.7 Seconds (25.6-37.1) 09/08/18 07:55 Assessment and Plan - Assessment and Plan (Free Text) Plan: seen at bedside, no overnight events. Tolerating diet, no nausea or vomiting. SHAYY in place 50cc SS. abd: soft, NT, obese, SHAYY in place a/p cont diet prn pain control cont SHAYY and monitor output stable for dc from surgery perspective f/u in office for SHAYY removal
[2018-09-11] MEDS: Budesonide 0.25 mg/2 ml Inhal Susp UD INH SCH (07:46)
[2018-09-11 08:18] VITALS: BP 133/79; TEMP 98; O2SAT 91
[2018-09-11] MEDS: buPROPion SR 150 MG TABLET PO SCH (10:03)
--- NOTE | 2018-09-11 12:56 | CP.PCM.PN ---
Subjective - Date & Time of Evaluation Date of Evaluation: 09/11/18 Time of Evaluation: 12:10 - Subjective Subjective: F/U Abdominal pain, s/p Lap Jonas. No A/D, no c/o. Objective - Vital Signs/Intake and Output Vital Signs (last 24 hours): Temp Pulse Resp BP Pulse Ox 98 F 79 20 133/79 91 L 09/11/18 08:17 09/11/18 08:17 09/11/18 08:17 09/11/18 08:17 09/11/18 08:17 - Medications Medications: Current Medications Albuterol/Ipratropium (Duoneb 3 Mg/0.5 Mg (3 Ml) Ud) 3 ml INH RQ6 [facility] Last Admin: 09/11/18 07:46 Dose: 3 ml Budesonide (Pulmicort Respules) 0.25 mg INH RBID [facility] Last Admin: 09/11/18 07:46 Dose: 0.25 mg Bupropion HCl (Wellbutrin Sr 150 Mg) 150 mg PO DAILY [facility] Last Admin: 09/11/18 10:03 Dose: 150 mg Docusate Sodium (Colace) 100 mg PO BID [facility] Last Admin: 09/11/18 10:03 Dose: 100 mg Enoxaparin Sodium (Lovenox) 40 mg SC DAILY [facility]; Protocol Last Admin: 09/08/18 10:00 Dose: Not Given Gabapentin (Neurontin) 200 mg PO Q8 [facility] Last Admin: 09/11/18 10:02 Dose: 200 mg Gentamicin Sulfate/Sodium Chloride (Gentamicin 80mg/50ml Ns) 80 mg in 50 mls @ 50 mls/hr IVPB Q8 [facility]; Protocol Last Admin: 09/11/18 10:02 Dose: 50 mls/hr Piperacillin Sod/Tazobactam (Sod 3.375 gm/ Sodium Chloride) 100 mls @ 100 mls/hr IVPB Q6 [facility]; Protocol Last Admin: 09/11/18 10:01 Dose: 100 mls/hr Methadone HCl (Methadone) 80 mg PO DAILY [facility] Last Admin: 09/11/18 10:01 Dose: 80 mg Mirtazapine (Remeron) 45 mg PO HS [facility] Last Admin: 09/10/18 21:34 Dose: 45 mg Morphine Sulfate (Morphine) 2 mg IVP Q4 PRN PRN Reason: Pain, moderate (4-7) Last Admin: 09/11/18 04:45 Dose: 2 mg Ondansetron HCl (Zofran Inj) 4 mg IVP Q4 PRN PRN Reason: Nausea/Vomiting Last Admin: 09/03/18 12:35 Dose: 4 mg Promethazine HCl/Codeine (Phenergan/Codeine Oral Syrup) 10 ml PO Q6 PRN PRN Reason: Cough - Labs Labs: 09/10/18 06:55 09/10/18 06:55 PT 12.5 Seconds (9.8-13.1) 09/08/18 07:55 INR 1.1 09/08/18 07:55 APTT 31.7 Seconds (25.6-37.1) 09/08/18 07:55 Assessment and Plan (1) COPD exacerbation Status: Acute (2) Abdominal pain Status: Acute (3) Elevated liver enzymes Status: Acute (4) Common bile duct dilatation Status: Acute (5) Bacteremia due to Gram-negative bacteria Status: Acute (6) Hepatic steatosis Status: Acute (7) Hepatitis C Status: Chronic (8) Alcohol abuse Status: Chronic (9) Opiate abuse, continuous Status: Chronic (10) S/P ERCP Status: Acute
--- NOTE | 2018-09-11 13:27 | RAD ---
Date of service: 09/10/2018 HISTORY: SOB COMPARISON: 09/06/2018 TECHNIQUE: Chest PA and lateral FINDINGS: LUNGS: No active pulmonary disease. PLEURA: No significant pleural effusion identified. No pneumothorax apparent. CARDIOVASCULAR: No aortic atherosclerotic calcification present. Normal cardiac size. No pulmonary vascular congestion. OSSEOUS STRUCTURES: No significant abnormalities. VISUALIZED UPPER ABDOMEN: Normal. OTHER FINDINGS: None. IMPRESSION: No active disease.
--- NOTE | 2018-09-11 21:07 | CP.PCM.DIS ---
Provider - Provider Date of Admission: 09/02/18 11:04 Attending physician: Emerson Najera MD Consults: 09/02/18 10:44 Surgery [General Surgery Consult] Stat Comment: Consulting Provider: Ivan Reeves Consulting Physician: Ivan Reeves Reason for Consult: acute cholecystitis 09/02/18 10:45 Gastroenterology Consult Stat Comment: Consulting Provider: Vince Quintero Consulting Physician: Vince Quintero Reason for Consult: transaminitis, dilated CBD 09/02/18 16:44 Social Work Referral Routine Comment: on Methadone tx Physician Instructions: Reason For Exam: Hx of drug abuse 09/02/18 19:37 Social Work Referral Routine Comment: hx of drug abuse Physician Instructions: Reason For Exam: Hx of drug abuse; on methadone tx 09/04/18 09:03 Infectious Disease Consult Routine Comment: Consulting Provider: Boyd Quiros Consulting Physician: Boyd Quiros Reason for Consult: Bacteremia Diagnosis - Discharge Diagnosis (1) COPD exacerbation Status: Acute (2) Abdominal pain Status: Acute Priority: High (3) Elevated liver enzymes Status: Acute Priority: High (4) Common bile duct dilatation Status: Acute (5) Bacteremia due to Gram-negative bacteria Status: Acute Priority: High (6) Hepatic steatosis Status: Acute Priority: High (7) Hepatitis C Status: Chronic Priority: High (8) Alcohol abuse Status: Chronic Priority: High (9) Opiate abuse, continuous Status: Chronic Priority: High (10) S/P ERCP Status: Acute Hospital Course - Lab Results Lab Results: Micro Results 09/09/18 20:52 Blood-Venous Blood Culture - Preliminary NO GROWTH AFTER 48 HOURS 09/09/18 20:30 Blood-Venous Blood Culture - Preliminary NO GROWTH AFTER 48 HOURS 09/11/18 12:00 Sputum Gram Stain - Final 09/06/18 10:10 Blood Blood Culture - Final NO GROWTH AFTER 5 DAYS 09/06/18 10:10 Blood Gram Stain - Final TEST NOT PERFORMED 09/05/18 11:15 Blood Blood Culture - Final NO GROWTH AFTER 5 DAYS 09/05/18 11:15 Blood Gram Stain - Final TEST NOT PERFORMED 09/04/18 10:46 Blood Blood Culture - Final NO GROWTH AFTER 5 DAYS 09/04/18 10:46 Blood Gram Stain - Final TEST NOT PERFORMED 09/04/18 12:00 Urine,Clean Catch Urine Culture - Final No Growth (<1,000 CFU/ML) 09/02/18 06:00 Blood Blood Culture - Final Klebsiella Pneumoniae Ssp Pneu 09/02/18 06:00 Blood Gram Stain - Final 09/02/18 05:50 Blood Blood Culture - Final Klebsiella Pneumoniae Ssp Pneu 09/02/18 05:50 Blood Gram Stain - Final Most Recent Lab Values WBC 6.5 K/uL (4.8-10.8) 09/10/18 06:55 RBC 3.68 Mil/uL (4.40-5.90) L 09/10/18 06:55 Hgb 11.2 g/dL (12.0-18.0) L 09/10/18 06:55 Hct 33.6 % (35.0-51.0) L 09/10/18 06:55 MCV 91.1 fl (80.0-94.0) 09/10/18 06:55 MCH 30.5 pg (27.0-31.0) 09/10/18 06:55 MCHC 33.5 g/dL (33.0-37.0) 09/10/18 06:55 RDW 14.1 % (11.5-14.5) 09/10/18 06:55 Plt Count 188 K/uL (130-400) 09/10/18 06:55 MPV 7.7 fl (7.2-11.7) 09/09/18 06:40 Neut % (Auto) 74.6 % (50.0-75.0) 09/09/18 06:40 Lymph % (Auto) 14.9 % (20.0-40.0) L 09/09/18 06:40 [place] % (Auto) 9.2 % (0.0-10.0) 09/09/18 06:40 Eos % (Auto) 1.2 % (0.0-4.0) 09/09/18 06:40 Baso % (Auto) 0.1 % (0.0-2.0) 09/09/18 06:40 Neut # (Auto) 5.8 K/uL (1.8-7.0) 09/09/18 06:40 Lymph # (Auto) 1.2 K/uL (1.0-4.3) 09/09/18 06:40 [place] # (Auto) 0.7 K/uL (0.0-0.8) 09/09/18 06:40 Eos # (Auto) 0.1 K/uL (0.0-0.7) 09/09/18 06:40 Baso # (Auto) 0.0 K/uL (0.0-0.2) 09/09/18 06:40 Neutrophils % (Manual) 83 % (42-75) H 09/02/18 05:50 Band Neutrophils % 7 % (0-2) H 09/02/18 05:50 Lymphocytes % (Manual) 4 % (20-50) L 09/02/18 05:50 Monocytes % (Manual) 6 % (0-10) 09/02/18 05:50 Platelet Estimate Decreased (NORMAL) L 09/02/18 05:50 Plt Clumps, EDTA Present 09/02/18 05:50 PT 12.5 Seconds (9.8-13.1) 09/08/18 07:55 INR 1.1 09/08/18 07:55 APTT 31.7 Seconds (25.6-37.1) 09/08/18 07:55 pO2 81 mm/Hg (30-55) H 09/02/18 11:10 VBG pH 7.42 (7.32-7.43) 09/02/18 11:10 VBG pCO2 38 mmHg (40-60) L 09/02/18 11:10 VBG HCO3 25.1 mmol/L 09/02/18 11:10 VBG Total CO2 25.8 mmol/L (22-28) 09/02/18 11:10 VBG O2 Sat (Calc) 99.3 % (40-65) H 09/02/18 11:10 VBG Base Excess 0.3 mmol/L (0.0-2.0) 09/02/18 11:10 VBG Potassium 4.6 mmol/L (3.6-5.2) 09/02/18 11:10 Sodium 131.0 mmol/L (132-148) L 09/02/18 11:10 Chloride 104.0 mmol/L (98-107) 09/02/18 11:10 Glucose 113 mg/dL (75-110) H 09/02/18 11:10 Lactate 1.6 mmol/L (0.7-2.1) 09/02/18 11:10 FiO2 21.0 % 09/02/18 11:10 Sodium 137 mmol/l (132-148) 09/10/18 06:55 Potassium 4.6 MMOL/L (3.6-5.0) 09/10/18 06:55 Chloride 95 mmol/L (98-107) L 09/10/18 06:55 Carbon Dioxide 28 mmol/L (22-30) 09/10/18 06:55 Anion Gap 19 (10-20) 09/10/18 06:55 BUN 15 mg/dl (9-20) 09/10/18 06:55 Creatinine 1.1 mg/dl (0.8-1.5) 09/10/18 06:55 Est GFR ( Amer) > 60 09/10/18 06:55 Est GFR (Non-Af Amer) > 60 09/10/18 06:55 Random Glucose 111 mg/dL (75-110) H 09/10/18 06:55 Calcium 9.2 mg/dL (8.4-10.2) 09/10/18 06:55 Phosphorus 4.3 mg/dl (2.5-4.5) 09/09/18 06:40 Magnesium 2.2 MG/DL (1.6-2.3) 09/09/18 06:40 Total Bilirubin 1.0 mg/dl (0.2-1.3) 09/10/18 06:55 AST 22 U/L (17-59) 09/10/18 06:55 ALT 32 U/L (21-72) 09/10/18 06:55 Alkaline Phosphatase 209 U/L (38-126) H 09/10/18 06:55 Total Protein 7.6 G/DL (6.3-8.2) 09/10/18 06:55 Albumin 3.4 g/dL (3.5-5.0) L 09/10/18 06:55 Globulin 4.2 gm/dL (2.2-3.9) H 09/10/18 06:55 Albumin/Globulin Ratio 0.8 (1.0-2.1) L 09/10/18 06:55 Lipase 76 U/L (23-300) 09/02/18 05:50 Free PSA <0.1 ng/mL 09/05/18 11:15 % Free PSA Unable to calculate % (calc) (>25) 09/05/18 11:15 Total PSA 0.1 ng/mL (< or = 4.0) 09/05/18 11:15 Procalcitonin 0.56 NG/ML (0.19-0.49) H 09/05/18 11:15 Testosterone (LC-MS) 16 ng/dL (250-1100) L 09/05/18 11:15 Venous Blood Potassium 4.6 mmol/L (3.6-5.2) 09/02/18 11:10 Urine Color Yu (YELLOW) 09/02/18 07:40 Urine Clarity Slighty-cloudy (Clear) 09/02/18 07:40 Urine pH 7.0 (5.0-8.0) 09/02/18 07:40 Ur Specific [place] 1.019 (1.003-1.030) 09/02/18 07:40 Urine Protein Negative mg/dL (NEGATIVE) 09/02/18 07:40 Urine Glucose (UA) Neg mg/dL (NEGATIVE) 09/02/18 07:40 Urine Ketones Negative mg/dL (NEGATIVE) 09/02/18 07:40 Urine Blood Negative (NEGATIVE) 09/02/18 07:40 Urine Nitrate Negative (NEGATIVE) 09/02/18 07:40 Urine Bilirubin Negative (NEGATIVE) 09/02/18 07:40 Urine Urobilinogen 4.0 mg/dL (0.2-1.0) 09/02/18 07:40 Ur Leukocyte Esterase Neg Char/uL (Negative) 09/02/18 07:40 Urine RBC (Auto) 1 /hpf (0-3) 09/02/18 07:40 Urine Microscopic WBC 1 /hpf (0-5) 09/02/18 07:40 Ur Squamous Epith Cells < 1 /hpf (0-5) 09/02/18 07:40 Urine Bacteria Rare (<OCC) 09/02/18 07:40 Urine Opiates Screen Positive (NEGATIVE) H 09/02/18 09:25 Urine Methadone Screen Positive (NEGATIVE) H 09/02/18 09:25 Ur Barbiturates Screen Negative (NEGATIVE) 09/02/18 09:25 Ur Phencyclidine Scrn Negative (NEGATIVE) 09/02/18 09:25 Ur Amphetamines Screen Negative (NEGATIVE) 09/02/18 09:25 U Benzodiazepines Scrn Negative (NEGATIVE) 09/02/18 09:25 U Oth Cocaine Metabols Positive (NEGATIVE) H 09/02/18 09:25 U Cannabinoids Screen Negative (NEGATIVE) 09/02/18 09:25 Alcohol, Quantitative 22 mg/dl (0-10) H 09/02/18 06:28 Hepatitis A IgM Ab Negative (NEGATIVE) 09/03/18 05:45 Hep Bs Antigen Negative (NEGATIVE) 09/03/18 05:45 Hep B Core IgM Ab Negative (NEGATIVE) 09/03/18 05:45 Hepatitis C Antibody Reactive (NEGATIVE) 09/03/18 05:45 Hepatitis C RNA <15 not detected IU/mL (Not Detected) 09/05/18 11:15 HCV RNA Quant (PCR) <1.18 not detected Log IU/mL (Not Detected) 09/05/18 11:15 Blood Type A NEGATIVE 09/08/18 07:55 Antibody Screen Negative 09/08/18 07:55 BBK History Checked Patient has bt 09/08/18 07:55 Discharge Exam - Head Exam Head Exam: NORMAL INSPECTION Discharge Plan - Discharge Medications Prescriptions: Cefuroxime Axetil [Cefuroxime] 500 mg PO DAILY #7 tablet - Follow Up Plan Condition: FAIR Disposition: HOME/ ROUTINE Instructions: Nithin-Ross Drain, Cholecystectomy, Laparoscopic Surgery Additional Instructions: follow up with dr welch and dr najera in 1 week Referrals: Ivan Reeves MD [Staff Provider] - Vince Quintero MD, PhD [Staff Provider] - Boyd Quiros MD [Medical Doctor] - Emerson Najera MD [Staff Provider] -
--- NOTE | 2018-09-12 13:33 | PQF ---
PROVIDER RESPONSE TEXT: Due to Acute Cholecystitis REVIEWER QUERY TEXT: Symptom Underlying Cause Please document the etiology of the abdominal pain: if known after the work up is completed OR: Unable to determine OR: Other explanation of clinical finding H and P: Impression includes: (1) Abdominal pain Status: Acute Priority: High (2) Elevated liver enzymes Status: Acute Priority: High (3) Common bile duct dilatation Status: Acute (4) Bacteremia due to Gram-negative bacteria Status: Acute Priority: High (5) Hepatic steatosis Status: Acute Priority: High (6) Hepatitis C Status: Chronic Priority: High (7) Alcohol abuse Status: Chronic Priority: High (8) Opiate abuse, continuous Status: Chronic Priority: High 09/06 Surgery: for lap cholecystectomy 09/06 Attending progress note includes: S/P ERCP yesterday with stone extraction The patient's Clinical Indicators include: -- Query created by: Gretchen oSusa on 09/08/2018 8:30 AM Electronically signed by: Emerson Robbins MD 09/12/2018 1:30 PM
--- NOTE | 2018-09-12 13:33 | RAD ---
Date of service: 09/05/2018 PROCEDURE: Intraoperative Fluoroscopy. HISTORY: ERCP FINDINGS: Fluoroscopic assistance was provided. Fluoroscopy time = 99.8 sec. Radiation dose = 52.46 mGy. Please refer to the operative report for additional details.
== END 2018-09-11 16:58 | disposition home health service (06) | DRG 556 ==
LOC: H.ER 03:18 → H.ERHOLD 11:04 → H.MEDSURG1 13:30
PROVIDERS: ADMIT Internal Medicine Pulmonary Disease; ATTEND Internal Medicine Pulmonary Disease
PROC: 3E02340 Introduction of Influenza Vaccine into Muscle, Percutaneous Approach (ICD-10-PCS; 2018-09-03)
PROC: 0FC98ZZ Extirpation of Matter from Common Bile Duct, Via Natural or Artificial Opening Endoscopic (ICD-10-PCS; 2018-09-05)
PROC: 0F798ZZ Dilation of Common Bile Duct, Via Natural or Artificial Opening Endoscopic (ICD-10-PCS; 2018-09-05)
PROC: 0F7D8ZZ Dilation of Pancreatic Duct, Via Natural or Artificial Opening Endoscopic (ICD-10-PCS; 2018-09-05)
PROC: 0FT44ZZ Resection of Gallbladder, Percutaneous Endoscopic Approach (ICD-10-PCS; principal; 2018-09-08 09:15)
DX: K80.46 Calculus of bile duct with acute and chronic cholecystitis without obstruction (principal); R78.81 Bacteremia; B96.1 Klebsiella pneumoniae [K. pneumoniae] as the cause of diseases classified elsewhere; F11.20 Opioid dependence, uncomplicated; B18.2 Chronic viral hepatitis C; F14.10 Cocaine abuse, uncomplicated; E66.01 Morbid (severe) obesity due to excess calories; Z68.41 Body mass index [BMI] 40.0-44.9, adult; F10.129 Alcohol abuse with intoxication, unspecified; Y90.1 Blood alcohol level of 20-39 mg/100 ml; K76.0 Fatty (change of) liver, not elsewhere classified; K44.9 Diaphragmatic hernia without obstruction or gangrene; K21.9 Gastro-esophageal reflux disease without esophagitis; K59.00 Constipation, unspecified; F41.9 Anxiety disorder, unspecified; F17.210 Nicotine dependence, cigarettes, uncomplicated; Z23 Encounter for immunization; Z86.718 Personal history of other venous thrombosis and embolism; Z79.82 Long term (current) use of aspirin